=== PATIENT | female | born 1960 | race Caucasian/White ===

== ENCOUNTER 2018-08-05 06:07 | Day surgery (SDC) | payer MEDICAID ==
[~2018-08-05 06:07] MED LIST: Dextrose 5%-0.45% NaCl 1,000 ML IV SCH; Sodium Chloride 0.9% 10 ML Syringe FLUSH PRN
[2018-08-05] MEDS ORDERED: fentaNYL 100 MCG/2 ML SDV IV ONE ×3 (06:08→07:18)
[2018-08-05] MEDS ORDERED: Midazolam 1 MG/ML 2 ML SDV IV ONE ×3 (06:08→07:19)
[2018-08-05] MEDS ORDERED: Midazolam 1 MG/ML 2 ML SDV ONE (06:16)
[2018-08-05] MEDS ORDERED: fentaNYL 100 MCG/2 ML SDV ONE (06:17)
[2018-08-05 11:45] VITALS: BP 122/65
[2018-08-05 12:04] VITALS: PULSE 78
--- NOTE | 2018-08-05 14:56 | OR ---
DATE: 08/05/2018 PROCEDURE PERFORMED: Esophagogastroduodenoscopy and multiple pinch biopsies. INSTRUMENT USED: [id number]-[id number] Olympus video panendoscope. PREMEDICATIONS: No oral or topical anesthesia used. Fentanyl 100 mcg intravenous, Versed 2 mg intravenous. Nasal O2 cannula. The procedure was done under pulse oximetry, BP recording, and youth nutritional monitor. INDICATION: The patient with persistent longstanding heartburn and dyspepsia, unexplained and not responsive to medical measures, acid suppressant. Esophagogastroduodenoscopy is performed for detection of any active erosive lesions, Stark esophagus and/or malignancy also under consideration, H. pylori status to be determined, endoscopic hemostasis therapy if needed. DESCRIPTION OF PROCEDURE: The scope was passed with ease. Adequate visualization of the esophagus was made from proximal to distal areas. No upper esophageal lesions identified. No distal esophageal stricture. No uphill or downhill esophageal varices. No Rosie-Reyes tear. No evidence of erosive esophagitis by [place] criteria. No esophageal polyp or tumor mass identified. Sliding hiatal hernia was noted. Four-quadrant biopsies were taken from the pink columnar epithelium at 35 cm distal to the oral verge and sent for any histopathologic evidence of intestinal metaplasia. No proximal gastric varices noted. Gastric fundus examination by retroflexion showed no polypoid lesions. No gastric ulcer, malignant mass, or vascular ectasia identified. Multiple pinch biopsies were taken from the gastric antrum and proximal body and sent for PyloriTek test for H. pylori histopathology. Duodenal bulb showed no ulcer. Visualized second part of the duodenum was unremarkable. No bleeding was noted from any of the visualized areas at the completion of the examination. Photographs were taken of the duodenal bulb, gastric antrum, fundus, and distal esophagus. IMPRESSION: Sliding hiatal hernia. The patient tolerated the procedure well. [facility] /[id number]
== END 2018-08-05 09:32 | disposition home or self-care (01) ==
LOC: DL.ENDO 06:07
PROVIDERS: ATTEND Internal Medicine Gastroenterology
DX: K44.9 Diaphragmatic hernia without obstruction or gangrene (principal); I78.1 Nevus, non-neoplastic; I51.89 Other ill-defined heart diseases; K31.89 Other diseases of stomach and duodenum; K21.9 Gastro-esophageal reflux disease without esophagitis; I25.10 Atherosclerotic heart disease of native coronary artery without angina pectoris; Z95.5 Presence of coronary angioplasty implant and graft; E66.9 Obesity, unspecified; Z68.39 Body mass index [BMI] 39.0-39.9, adult; Z87.891 Personal history of nicotine dependence
CPT/HCPCS: 43239; 87077; J2250; J3010; J7042

== ENCOUNTER 2020-06-22 06:01 | Day surgery (SDC) | payer MEDICAID ==
[~2020-06-22 06:01] MED LIST changes: +Midazolam 1 MG/ML 2 ML SDV ONE; +fentaNYL 100 MCG/2 ML SDV ONE
[2020-06-22] MEDS ORDERED: Midazolam 1 MG/ML 2 ML SDV IV ONE ×7 (06:02→07:58)
[2020-06-22] MEDS ORDERED: fentaNYL 100 MCG/2 ML SDV IV ONE ×6 (06:02→08:14)
[2020-06-22 11:56] VITALS: BP 124/60; PULSE 71
--- NOTE | 2020-06-22 12:48 | OR ---
DATE: 06/22/2020 PROCEDURE: Total colonoscopy, NBI, and cold snare polypectomy. INSTRUMENT USED: [id number] Olympus video colonoscope. PREMEDICATIONS: Fentanyl 175 mcg intravenous, Versed 4 mg intravenous. Nasal O2 cannula. The procedure was done under pulse oximetry, BP recording, and monitor car operator. INDICATION: The patient with chronic constipation, unexplained and not responsive to medical measures, on long-term laxatives. Colonoscopic examination is done for detection of any polypoid lesions and removal, endoscopic hemostasis therapy if needed. DESCRIPTION OF PROCEDURE: Initial rectal exam was unremarkable. Rigid anoscopy showed diffuse pigmentation in the rectum, consistent with melanosis coli. The scope was passed with relative ease up to the cecum, photographs were taken of the normal-appearing cecum identified by landmarks of appendiceal orifice and double-bulged ileocecal folds. No bleeding was noted from any of the visualized areas at the commencement of the examination. Bowel preparation was found to be adequate, [place] scale 2 in all the regions, total number 6. Diffuse pigmentation in the colon noted, consistent with melanosis coli. No stricture. No vascular ectasia. No large isolated ulcerations seen. No evidence of diffuse inflammatory bowel disease in the form of friability, contact bleeding, or ulcerations. In the proximal ascending colon, 5 mm sized benign-appearing polyp was noted, NBI views were obtained, photographs were obtained, cold snare polypectomy was done, the tissue was retrieved and sent for histopathology. Probing the proximal sides of folds and flexures using adequate distention and clearing up the stool material, withdrawal of the scope was made, cecum to rectum time over 6 minutes. No bleeding was noted from any of the visualized areas at the completion of examination. IMPRESSION: 1. Melanosis coli. 2. Ascending colon polyp. The patient tolerated the procedure well. [facility] /[id number]
== END 2020-06-22 10:33 | disposition home or self-care (01) ==
LOC: DL.ENDO 06:01
PROVIDERS: ATTEND Internal Medicine Gastroenterology
DX: Z12.11 Encounter for screening for malignant neoplasm of colon (principal); D12.2 Benign neoplasm of ascending colon; K63.89 Other specified diseases of intestine; K59.09 Other constipation
CPT/HCPCS: 45385; J2250; J3010; J7042

== ENCOUNTER 2020-07-06 18:04 | Emergency (ER) | payer MEDICAID ==
[2020-07-06] MEDS ORDERED: Acetaminophen/HYDROcodone 325-5 MG Tab PO ONE (18:05)
[2020-07-06 18:30] VITALS: BP 103/87; PULSE 81
--- NOTE | 2020-07-06 18:56 | CR ---
PROCEDURE INFORMATION: Exam: XR Right Wrist Exam date and time: 07/06/2020 6:39 PM Age: 59 years old Clinical indication: Other: Fall; Additional info: Fall wrist pain TECHNIQUE: Imaging protocol: XR Right wrist. Views: 3 or more views. COMPARISON: No relevant prior studies available. FINDINGS: Bones/joints: There is a subtle cortical discontinuity at the distal radial metaphysis, best seen on the oblique view (image 2 series 1), concerning for a minimally displaced cortical fracture. Additionally, there are several very subtle linear lucencies appreciated throughout the distal radial metaphysis which are also concerning for a minimally displaced transverse fracture. No other acutely displaced fractures are identified. There is no evidence of dislocation. No aggressive osseous lesions. Soft tissues: There is soft tissue swelling. Other findings: Normal anatomic alignment. IMPRESSION: Findings are highly concerning for a minimally displaced and minimally comminuted/transverse fracture of the distal radial metaphysis.
--- NOTE | 2020-07-06 18:59 | EDM.PDOC ---
<Silvina Urbina Fareed - Last Filed: 07/06/20 18:43> ED HPI GENERAL MEDICAL PROBLEM - General Chief Complaint: Upper Extremity Injury/Pain Stated Complaint: RIGHT ARM INJURY, FELL DOWN Time Seen by Provider: 07/06/20 18:20 Source of Information: Reports: Patient, RN History Limitations: Reports: No Limitations - History of Present Illness INITIAL COMMENTS - FREE TEXT/NARRATIVE: ED with c/o pain to right wrist, Fell onto right wrist going up curb. No other injury. Swelling to wrist, some radiation to mid forearm with external movement Onset: Today - Related Data Allergies Allergy/AdvReac Type Severity Reaction Status Date / Time No Known Allergies Allergy Verified 06/22/20 06:09 Home Meds: Home Meds Aspirin [Halfprin] 81 mg PO DAILY 08/03/15 [History] Clopidogrel [Plavix] 75 mg PO DAILY 08/03/15 [History] Venlafaxine HCl [Venlafaxine ER] 75 mg PO DAILY 08/03/15 [History] carvediloL [Carvedilol] 3.125 mg PO BID 08/03/15 [History] Multivitamin [Multivitamins] 1 tab PO DAILY 08/04/18 [History] Nitroglycerin [Nitrostat] 0.4 mg PO ASDIRECTED 08/04/18 [History] Rosuvastatin [Crestor] 10 mg PO DAILY 08/04/18 [History] Ubidecarenone [Coenzyme Q10] 10 mg PO DAILY 08/04/18 [History] Vit A/C/E AC/Znox/Cupric Oxide [Eye Vitamin-Minerals Tablet] 1 tab PO DAILY 08/04/18 [History] Ezetimibe [Zetia] 10 mg PO DAILY 07/06/20 [History] Omeprazole 20 mg PO ACBREAKFAST 07/06/20 [History] Past Medical History HEENT History: Reports: None Cardiovascular History: Reports: CAD, High Cholesterol, Hypertension, PA, Stents Respiratory History: Reports: None Gastrointestinal History: Reports: Chronic Constipation, GERD Genitourinary History: Reports: None INFANT CHILDCARE PROVIDER History: Reports: , Spontaneous Musculoskeletal History: Reports: Arthritis, Back Pain, Chronic, Neck Pain, Chronic Other Musculoskeletal History: neck problems Neurological History: Reports: None Psychiatric History: Reports: Anxiety, Depression Endocrine/Metabolic History: Reports: None Hematologic History: Reports: None Immunologic History: Reports: None Oncologic (Cancer) History: Reports: None Dermatologic History: Reports: Psoriasis - Infectious Disease History Infectious Disease History: Reports: Chicken Pox - Past Surgical History Head Surgeries/Procedures: Reports: None HEENT Surgical History: Reports: None Cardiovascular Surgical History: Reports: Coronary Artery Stent Respiratory Surgical History: Reports: None GI Surgical History: Reports: Cholecystectomy, Colonoscopy, EGD Female Surgical History: Reports: None Endocrine Surgical History: Reports: None Neurological Surgical History: Reports: None Musculoskeletal Surgical History: Reports: None Oncologic Surgical History: Reports: None Dermatological Surgical History: Reports: None Social & Family History - Family History Family Medical History: No Pertinent Family History - Tobacco Use Tobacco Use Status *Q: Never Tobacco User Second Hand Smoke Exposure: No - Caffeine Use Caffeine Use: Reports: None Other Caffeine Use: COFFEE DAILY AVERAGE OF 3 CUPS DAILY Review of Systems - Review of Systems Review Of Systems: See Below ED EXAM, GENERAL - Physical Exam Exam: See Below Exam Limited By: No Limitations General Appearance: Alert, Mild Distress Eye Exam: Bilateral Eye: EOMI Ears: Normal External Exam Nose: Normal Inspection Throat/Mouth: Normal Inspection Head: Atraumatic, Normocephalic Respiratory/Chest: No Respiratory Distress, Normal Breath Sounds Cardiovascular: Regular Rate, Rhythm Extremities: Joint Swelling (right wrist), Limited Range of Motion, Other (rings form right 4th finger removed, returned to patient) Departure - Departure Disposition: Home, Self-Care 01 Condition: Good Clinical Impression: Fracture of radius Qualifiers: Encounter type: initial encounter Radius location: distal Fracture type: closed Fracture morphology: unspecified fracture morphology Laterality: right Qualified Code(s): S52.501A - Unspecified fracture of the lower end of right radius, initial encounter for closed fracture - Discharge Information *PRESCRIPTION DRUG MONITORING PROGRAM REVIEWED*: No *COPY OF PRESCRIPTION DRUG MONITORING REPORT IN PATIENT TINA: No Instructions: Wrist Fracture Treated With Immobilization, [id number] Forms: ED Department Discharge Additional Instructions: splint elevate ice to wrist tylenol 500mg every 4 hours may alternate with ibuprofen 400mg every 4 hours for mild to moderate pain norco 5/325 one every 6 hours as needed for severe pain clinic follow up early next week for re xray of right wrist Sepsis Event Note (ED) - Evaluation Sepsis Screening Result: No Definite Risk <Gt Georges - Last Filed: 07/06/20 19:17> ED TRAUMA EXTREMITY PROCEDURES - Splinting Right Upper Extremity Splint Site: Right wrist Pre-Procedure NV Status: Normal Post-Procedure NV Status: Normal Splint Material: Fiberglass Splint Design: Gutter Applied & Form Fitted By: Provider Provider Post-Splint Application NV Check: NV Status Normal Complications: No Course - Vital Signs Last Recorded V/S: Last Vital Signs Temp 36.4 C 07/06/20 18:23 Pulse 81 07/06/20 18:23 Resp 18 07/06/20 18:23 BP 103/87 07/06/20 18:23 Pulse Ox 98 07/06/20 18:23 - Orders/Labs/Meds Orders: Active Orders 24 hr Category Date Time Status DME for Discharge [COMM] Urgent Oth 07/06/20 19:15 Ordered Meds: Medications Discontinued Medications Generic Name Dose Route Start Last Admin Trade Name Tusharq PRN Reason Stop Dose Admin Hydrocodone Bitart/Acetaminophen Confirm 07/06/20 19:07 Acetaminophen/Hydrocodone 325-5 Mg Tab Administered 07/06/20 19:08 Dose 3 tab .ROUTE .STK-MED ONE Departure - Departure Time of Disposition: 19:17 Sepsis Event Note (ED) - Focused Exam Vital Signs: Vital Signs Temp Pulse Resp BP Pulse Ox 07/06/20 18:23 36.4 C 81 18 103/87 98 - My Orders Last 24 Hours: My Active Orders 07/06/20 19:15 DME for Discharge [COMM] Urgent - Assessment/Plan Last 24 Hours: My Active Orders 07/06/20 19:15 DME for Discharge [COMM] Urgent
[2020-07-06] MEDS ORDERED: Acetaminophen/HYDROcodone 325-5 MG Tab ONE (19:07)
== END 2020-07-06 19:36 | disposition home or self-care (01) ==
LOC: DL.ED 18:04
DX: S52.501A Unspecified fracture of the lower end of right radius, initial encounter for closed fracture (principal); I25.10 Atherosclerotic heart disease of native coronary artery without angina pectoris; E78.00 Pure hypercholesterolemia, unspecified; I10 Essential (primary) hypertension; I25.2 Old myocardial infarction; K21.9 Gastro-esophageal reflux disease without esophagitis; M19.90 Unspecified osteoarthritis, unspecified site; Z79.82 Long term (current) use of aspirin; Z79.02 Long term (current) use of antithrombotics/antiplatelets; Z95.5 Presence of coronary angioplasty implant and graft; Z79.899 Other long term (current) drug therapy; W10.1XXA Fall (on)(from) sidewalk curb, initial encounter
CPT/HCPCS: 29125; 73110; 99283; A9270

== ENCOUNTER 2021-01-29 20:57 | Inpatient (IN) | payer MEDICAID ==
[2021-01-29] MEDS ORDERED: Sodium Chloride 0.9% 1,000 ML IV ONE (22:09)
[2021-01-29] MEDS ORDERED: Levofloxacin/Dextrose 5%-Water 500 MG in Premix Bag 1 BAG IV ONE (22:25)
--- NOTE | 2021-01-29 22:25 | CR ---
PROCEDURE INFORMATION: Exam: XR Chest Exam date and time: 01/29/2021 10:05 PM Age: 60 years old Clinical indication: Cough and fever and other: Hypoxia; Additional info: Cough fever hypoxia TECHNIQUE: Imaging protocol: XR of the chest. Views: 1 view. COMPARISON: CR CHEST PORTABLE 01/15/2012 11:04 PM FINDINGS: Lungs: Patchy bilateral airspace disease. Pleural spaces: Unremarkable. No pleural effusion. No pneumothorax. Heart/Mediastinum: Unremarkable. No cardiomegaly. Bones/joints: Unremarkable. IMPRESSION: Patchy bilateral airspace opacities compatible with pneumonia
[2021-01-29 22:26] LABS: ANION GAP 13.9 mEq/L (7-13); CHLORIDE,CL 99 mmol/L (98-107); SODIUM,NA 137 mmol/L (136-145)
[2021-01-29] MEDS ORDERED: Dexamethasone 4 MG/ML SDV IVPUSH ONE (22:31)
--- NOTE | 2021-01-29 22:39 | EDM.PDOC ---
"<Kemal Hansen - Last Filed: 01/30/21 11:54> ED HPI GENERAL MEDICAL PROBLEM - General Chief Complaint: Respiratory Problem Stated Complaint: PNUMONIA, BLOOD OXYGEN LOW, COUGH Time Seen by Provider: 01/29/21 21:30 Source of Information: Reports: Patient, Provider (Carol TURK), RN, RN Notes Reviewed History Limitations: Reports: No Limitations - History of Present Illness INITIAL COMMENTS - FREE TEXT/NARRATIVE: I assumed care of the pt from Carol TURK at 0700HR shift change with pt held in ER for the past 9+HRS due to no beds available here, or anywhere else in the state. Pt has been confirmed COVID positive with B/L pneumonia and hypoxia. Pt reportedly placed on a list to be transferred to [facility] but they were holding pt's in their ER and have 7 pt's on the waiting list for transfer ahead of the pt. Pt currently with oxygen saturation of 94% on 3L/min at rest, and drops to 88% with conversation. Duration: Constant, Getting Worse Severity: Severe Improves with: Reports: Rest Worsens with: Reports: Movement Associated Symptoms: Reports: No Other Symptoms - Related Data Allergies Allergy/AdvReac Type Severity Reaction Status Date / Time No Known Allergies Allergy Verified 01/30/21 14:07 Home Meds: Home Meds Aspirin [Halfprin] 81 mg PO DAILY 08/03/15 [History] Clopidogrel [Plavix] 75 mg PO DAILY 08/03/15 [History] Venlafaxine HCl [Venlafaxine ER] 75 mg PO DAILY 08/03/15 [History] carvediloL [Carvedilol] 3.125 mg PO BID 08/03/15 [History] Nitroglycerin [Nitrostat] 0.4 mg PO ASDIRECTED 08/04/18 [History] Rosuvastatin [Crestor] 10 mg PO DAILY 08/04/18 [History] Ubidecarenone [Coenzyme Q10] 10 mg PO DAILY 08/04/18 [History] Vit A/C/E AC/Znox/Cupric Oxide [Eye Vitamin-Minerals Tablet] 1 tab PO DAILY 08/04/18 [History] Omeprazole 20 mg PO ACBREAKFAST 07/06/20 [History] Cholecalciferol (Vitamin D3) [Vitamin D3] 25 mcg PO DAILY tablet 02/01/21 [Rx] Docusate Sodium [Colace] 100 mg PO BID PRN cap 02/01/21 [Rx] Enoxaparin [Lovenox] 80 mg SUBCUT Q12HR syringe 02/01/21 [Rx] LORazepam [Ativan] 1 mg IVPUSH Q4H PRN vial 02/01/21 [Rx] Midazolam [Versed 5 MG/ML] 50 mg IV ASDIRECTED vial 02/01/21 [Rx] Morphine 1 mg IVPUSH Q1H PRN syringe 02/01/21 [Rx] Multivitamins/Minerals [Vitamins and Minerals] 1 tab PO WITHBREAKFAST tablet 02/01/21 [Rx] Ondansetron [Zofran ODT] 4 mg PO Q6H PRN tab.dis 02/01/21 [Rx] Remdesivir 100 mg IV Q24H vial 02/01/21 [Rx] Temazepam [Restoril] 15 mg PO BEDTIME PRN cap 02/01/21 [Rx] dexAMETHasone [Decadron] 6 mg IVPUSH DAILY sdv 02/01/21 [Rx] fentaNYL Citrate/PF [Fentanyl 1,500 MCG/30 ML - Water HAT CHECKER] 0 mcg IV ASDIRECTED vial 02/01/21 [Rx] guaiFENesin [Robitussin] 100 mg PO Q6H PRN cup 02/01/21 [Rx] Course - Radiology Interpretation Free Text/Narrative:: [facility] Final Radiology Report Call: [phone] assistance Online chat: [email or web address] Name: LIONEL MANZANO Age: 60Years F Date: 01/30/2021 SSN: -- : 1960 Study: CT CHEST WO CONT Requesting Physician: CAROL SPENCER Images: [id number] Addl Studies: Provided Clinical History: covid Contrast: Without Contrast Medium: Contrast Amount: Contrast Method: Page 1 of 2 PROCEDURE INFORMATION: Exam: CT Chest Without Contrast; Diagnostic Exam date and time: 01/30/2021 6:36 AM Age: 60 years old Clinical indication: Cough and shortness of breath; Additional info: Covid TECHNIQUE: Imaging protocol: Diagnostic computed tomography of the chest without contrast. Radiation optimization: All CT scans at this facility use at least one of these dose optimization techniques: automated exposure control; mA and/or kV adjustment per patient size (includes targeted exams where dose is matched to clinical indication); or iterative reconstruction. COMPARISON: CR Chest 1V Frontal 01/29/2021 10:05 PM FINDINGS: Lungs: Extensive patchy areas of ground-glass opacity and airspace consolidation throughout both lungs. Comparison across modalities is inexact, but findings are unchanged since the previous study. Pleural spaces: Unremarkable. No pneumothorax. No pleural effusion. Heart: Unremarkable. No cardiomegaly. No pericardial effusion. Aorta: Unremarkable. No aortic aneurysm. Lymph nodes: Unremarkable. No enlarged lymph nodes. Bones/joints: Mild scoliotic curvature. Mild to moderate degenerative change in the spine. Old wedge compression fracture of T9. No acute fractures. Soft tissues: Unremarkable. IMPRESSION: Bilateral pneumonia with features commonly associated with COVID-19. Other viral pneumonias may have the same appearance. Other less likely differential considerations include organizing pneumonia LIONEL MANZANO | Final Radiology Report CONFIDENTIALITY STATEMENT This report is intended only for use by the referring physician, and only in accordance with law. If you received this in error, call [phone]. Page 2 of 2 secondary to chronic interstitial lung disease, the chronic pneumonia associated with connective tissue disorders, and one of the pneumoconioses. Thank you for allowing us to participate in the care of your patient. Dictated and Authenticated by: Gigi Graves MD 01/30/2021 7:33 AM Central Time ([place] & [place]) Departure - Departure Time of Disposition: 11:54 (admit to Dr. Messer) Disposition: Admitted As Inpatient 65 Clinical Impression: Pneumonia due to COVID-19 virus, Hypoxia - Discharge Information <Carol Spencer - Last Filed: 02/06/21 02:51> ED HPI GENERAL MEDICAL PROBLEM - General Source of Information: Reports: Patient History Limitations: Reports: No Limitations - History of Present Illness INITIAL COMMENTS - FREE TEXT/NARRATIVE: ED with c/o SOB fever cough, Onset sx 8 days prior. has had nausea and diarrhea. Sx worse past 2 days. Achey at times. Fever up to 102 tonight. Poor appetite. Non smoker. No prior lung disease. NOt vaccinated. No known exposure. Room air triage 83% ixygenation. 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 Musculoskeletal History: Reports: Arthritis, Back Pain, Chronic, Neck Pain, Chronic Other Musculoskeletal History: neck problems Neurological History: Reports: None Psychiatric History: Reports: Anxiety, Depression Endocrine/Metabolic History: Reports: None Hematologic History: Reports: None Immunologic History: Reports: None Oncologic (Cancer) History: Reports: None Dermatologic History: Reports: Psoriasis - Infectious Disease History Infectious Disease History: Reports: Chicken Pox - Past Surgical History Head Surgeries/Procedures: Reports: None HEENT Surgical History: Reports: None Cardiovascular Surgical History: Reports: Coronary Artery Stent Respiratory Surgical History: Reports: None GI Surgical History: Reports: Cholecystectomy, Colonoscopy, EGD Female Surgical History: Reports: None Endocrine Surgical History: Reports: None Neurological Surgical History: Reports: None Musculoskeletal Surgical History: Reports: None Oncologic Surgical History: Reports: None Dermatological Surgical History: Reports: None Social & Family History - Family History Family Medical History: No Pertinent Family History - Tobacco Use Tobacco Use Status *Q: Never Tobacco User - Caffeine Use Caffeine Use: Reports: Coffee Other Caffeine Use: COFFEE DAILY AVERAGE OF 3 CUPS DAILY - Recreational Drug Use Recreational Drug Use: No ED ROS GENERAL - Review of Systems Review Of Systems: See Below Constitutional: Reports: Fever, Chills, Malaise, Weakness, Fatigue, Decreased Appetite HEENT: Reports: No Symptoms Respiratory: Reports: Shortness of Breath, Cough, Sputum Cardiovascular: Reports: No Symptoms GI/Abdominal: Reports: Diarrhea, Decreased Appetite, Nausea : Reports: No Symptoms Skin: Reports: No Symptoms Neurological: Reports: No Symptoms Psychiatric: Reports: No Symptoms ED EXAM, GENERAL - Physical Exam Exam: See Below Exam Limited By: No Limitations General Appearance: Alert, Mild Distress Eye Exam: Bilateral Eye: EOMI Ears: Normal External Exam Nose: Normal Inspection Throat/Mouth: Normal Inspection Head: Atraumatic, Normocephalic Neck: Normal Inspection, Full Range of Motion Respiratory/Chest: Decreased Breath Sounds, Crackles Cardiovascular: Normal Peripheral Pulses, Regular Rate, Rhythm GI/Abdominal: Normal Bowel Sounds, Soft Extremities: Normal Inspection Neurological: Alert, Oriented, Normal Cognition Psychiatric: Normal Affect, Normal Mood Skin Exam: Warm, Dry, Intact, Pallor #1 Interpretation EKG Date: 01/29/21 Time: 21:28 Rhythm: NSR Rate (Beats/Min): 72 Liberal: LAD-Left Liberal Deviation (borderline) P-Wave: Present QRS: Normal ST-T: Normal Comparison: NA - No Prior EKG Course - Vital Signs Last Recorded V/S: Last Vital Signs Temp 97.8 F 02/01/21 16:49 Pulse 110 H 02/01/21 16:49 Resp 24 H 02/01/21 16:49 BP 110/60 02/01/21 16:49 Pulse Ox 93 L 02/01/21 16:49 - Orders/Labs/Meds Labs: Laboratory Tests 01/29/21 01/29/21 01/29/21 Range/Units 21:19 21:50 21:50 WBC 8.3 (5.0-10.0) 10^3/uL RBC 4.18 L (4.2-5.4) 10^6/uL Hgb 12.6 (12.0-16.0) g/dL Hct 38.2 (37.0-47.0) % MCV 91.4 (80-100) fL MCH 30.1 (27.0-34.0) pg MCHC 33.0 (33.0-35.0) g/dL Plt Count 307 (150-450) 10^3/uL Neut % (Auto) 88.4 H (42.2-75.2) % Lymph % (Auto) 7.8 L (20.5-50.1) % [place] % (Auto) 3.7 (2-8) % Eos % (Auto) 0.0 L (1.0-3.0) % Baso % (Auto) 0.1 (0.0-1.0) % Add Manual Diff Neutrophils % (Manual) (42-75) % Lymphocytes % (Manual) (20-50) % Monocytes % (Manual) (2-8) % PT 10.0 (9.0-12.0) SEC INR 1.0 (0.9-1.2) D-Dimer, Quantitative 1680 H (0-400) ng/mL Sodium 137 (136-145) mmol/L Potassium 3.9 (3.5-5.1) mmol/L Chloride 99 (98-107) mmol/L Carbon Dioxide 28 (21-32) mmol/L Anion Gap 13.9 H (7-13) mEq/L BUN 14 (7-18) mg/dL Creatinine 0.77 (0.55-1.02) mg/dL Est Cr Clr Drug Dosing 60.68 mL/min Estimated GFR (MDRD) > 60 BUN/Creatinine Ratio 18.2 (No establ ref range) Glucose 120 H (70-99) mg/dL Lactic Acid (0.4-2.0) mmol/L Calcium 8.4 L (8.5-10.1) mg/dL Magnesium (1.8-2.4) mg/dL Total Bilirubin 0.6 (0.2-1.0) mg/dL Direct Bilirubin (0.0-0.2) mg/dL AST 46 H (15-37) U/L ALT 27 (14-59) U/L Alkaline Phosphatase 102 (46-116) U/L Troponin I High Sens (<=51) pg/mL C-Reactive Protein 69.7 H (0.0-0.9) mg/dL B-Natriuretic Peptide 78 (0-100) pg/ml Total Protein 7.5 (6.4-8.2) g/dL Albumin 2.8 L (3.4-5.0) g/dL Globulin 4.7 Albumin/Globulin Ratio 0.60 Procalcitonin ng/mL Urine Color (YELLOW) Urine Appearance (CLEAR) Urine pH (5.0-9.0) Ur Specific [place] (1.005-1.030) Urine Protein (NEGATIVE) Urine Glucose (UA) (NEGATIVE) Urine Ketones (NEGATIVE) Urine Occult Blood (NEGATIVE) Urine Nitrite (NEGATIVE) Urine Bilirubin (NEGATIVE) Urine Urobilinogen (0.2-1.0) mg/dL Ur Leukocyte Esterase (NEGATIVE) Influenza Type A RNA (NEGATIVE) Influenza Type B RNA (NEGATIVE) SARS-CoV-2 RNA (ALPA) (NEGATIVE) 01/29/21 01/29/21 01/29/21 Range/Units 21:50 21:50 21:50 WBC (5.0-10.0) 10^3/uL RBC (4.2-5.4) 10^6/uL Hgb (12.0-16.0) g/dL Hct (37.0-47.0) % MCV (80-100) fL MCH (27.0-34.0) pg MCHC (33.0-35.0) g/dL Plt Count (150-450) 10^3/uL Neut % (Auto) (42.2-75.2) % Lymph % (Auto) (20.5-50.1) % [place] % (Auto) (2-8) % Eos % (Auto) (1.0-3.0) % Baso % (Auto) (0.0-1.0) % Add Manual Diff Neutrophils % (Manual) (42-75) % Lymphocytes % (Manual) (20-50) % Monocytes % (Manual) (2-8) % PT (9.0-12.0) SEC INR (0.9-1.2) D-Dimer, Quantitative (0-400) ng/mL Sodium (136-145) mmol/L Potassium (3.5-5.1) mmol/L Chloride (98-107) mmol/L Carbon Dioxide (21-32) mmol/L Anion Gap (7-13) mEq/L BUN (7-18) mg/dL Creatinine (0.55-1.02) mg/dL Est Cr Clr Drug Dosing mL/min Estimated GFR (MDRD) BUN/Creatinine Ratio (No establ ref range) Glucose (70-99) mg/dL Lactic Acid 1.1 (0.4-2.0) mmol/L Calcium (8.5-10.1) mg/dL Magnesium 2.1 (1.8-2.4) mg/dL Total Bilirubin (0.2-1.0) mg/dL Direct Bilirubin (0.0-0.2) mg/dL AST (15-37) U/L ALT (14-59) U/L Alkaline Phosphatase (46-116) U/L Troponin I High Sens 6 (<=51) pg/mL C-Reactive Protein (0.0-0.9) mg/dL B-Natriuretic Peptide (0-100) pg/ml Total Protein (6.4-8.2) g/dL Albumin (3.4-5.0) g/dL Globulin Albumin/Globulin Ratio Procalcitonin ng/mL Urine Color (YELLOW) Urine Appearance (CLEAR) Urine pH (5.0-9.0) Ur Specific [place] (1.005-1.030) Urine Protein (NEGATIVE) Urine Glucose (UA) (NEGATIVE) Urine Ketones (NEGATIVE) Urine Occult Blood (NEGATIVE) Urine Nitrite (NEGATIVE) Urine Bilirubin (NEGATIVE) Urine Urobilinogen (0.2-1.0) mg/dL Ur Leukocyte Esterase (NEGATIVE) Influenza Type A RNA (NEGATIVE) Influenza Type B RNA (NEGATIVE) SARS-CoV-2 RNA (ALPA) (NEGATIVE) 01/29/21 01/30/21 01/30/21 Range/Units 21:57 03:05 06:21 WBC (5.0-10.0) 10^3/uL RBC (4.2-5.4) 10^6/uL Hgb (12.0-16.0) g/dL Hct (37.0-47.0) % MCV (80-100) fL MCH (27.0-34.0) pg MCHC (33.0-35.0) g/dL Plt Count (150-450) 10^3/uL Neut % (Auto) (42.2-75.2) % Lymph % (Auto) (20.5-50.1) % [place] % (Auto) (2-8) % Eos % (Auto) (1.0-3.0) % Baso % (Auto) (0.0-1.0) % Add Manual Diff Neutrophils % (Manual) (42-75) % Lymphocytes % (Manual) (20-50) % Monocytes % (Manual) (2-8) % PT (9.0-12.0) SEC INR (0.9-1.2) D-Dimer, Quantitative (0-400) ng/mL Sodium 140 (136-145) mmol/L Potassium 4.3 (3.5-5.1) mmol/L Chloride 103 (98-107) mmol/L Carbon Dioxide 28 (21-32) mmol/L Anion Gap 13.3 H (7-13) mEq/L BUN 10 (7-18) mg/dL Creatinine 0.82 (0.55-1.02) mg/dL Est Cr Clr Drug Dosing 56.98 mL/min Estimated GFR (MDRD) > 60 BUN/Creatinine Ratio 12.2 (No establ ref range) Glucose 148 H (70-99) mg/dL Lactic Acid (0.4-2.0) mmol/L Calcium 8.2 L (8.5-10.1) mg/dL Magnesium (1.8-2.4) mg/dL Total Bilirubin 0.4 (0.2-1.0) mg/dL Direct Bilirubin 0.2 (0.0-0.2) mg/dL AST 39 H (15-37) U/L ALT 24 (14-59) U/L Alkaline Phosphatase 93 (46-116) U/L Troponin I High Sens (<=51) pg/mL C-Reactive Protein 27.8 H (0.0-0.9) mg/dL B-Natriuretic Peptide (0-100) pg/ml Total Protein 6.9 (6.4-8.2) g/dL Albumin 2.3 L (3.4-5.0) g/dL Globulin 4.6 Albumin/Globulin Ratio 0.50 Procalcitonin ng/mL Urine Color Yellow (YELLOW) Urine Appearance Clear (CLEAR) Urine pH 6.5 (5.0-9.0) Ur Specific [place] 1.010 (1.005-1.030) Urine Protein Negative (NEGATIVE) Urine Glucose (UA) Negative (NEGATIVE) Urine Ketones Negative (NEGATIVE) Urine Occult Blood Negative (NEGATIVE) Urine Nitrite Negative (NEGATIVE) Urine Bilirubin Negative (NEGATIVE) Urine Urobilinogen 0.2 (0.2-1.0) mg/dL Ur Leukocyte Esterase Negative (NEGATIVE) Influenza Type A RNA Negative (NEGATIVE) Influenza Type B RNA Negative (NEGATIVE) SARS-CoV-2 RNA (ALPA) Positive H (NEGATIVE) 01/30/21 01/30/21 01/30/21 Range/Units 06:21 06:21 06:21 WBC 7.3 (5.0-10.0) 10^3/uL RBC 3.91 L (4.2-5.4) 10^6/uL Hgb 11.7 L (12.0-16.0) g/dL Hct 36.0 L (37.0-47.0) % MCV 92.1 (80-100) fL MCH 29.9 (27.0-34.0) pg MCHC 32.5 L (33.0-35.0) g/dL Plt Count 309 (150-450) 10^3/uL Neut % (Auto) 88.0 H (42.2-75.2) % Lymph % (Auto) 9.9 L (20.5-50.1) % [place] % (Auto) 1.9 L (2-8) % Eos % (Auto) 0.1 L (1.0-3.0) % Baso % (Auto) 0.1 (0.0-1.0) % Add Manual Diff Yes Neutrophils % (Manual) 92 H (42-75) % Lymphocytes % (Manual) 7 L (20-50) % Monocytes % (Manual) 1 L (2-8) % PT (9.0-12.0) SEC INR (0.9-1.2) D-Dimer, Quantitative 1610 H (0-400) ng/mL Sodium (136-145) mmol/L Potassium (3.5-5.1) mmol/L Chloride (98-107) mmol/L Carbon Dioxide (21-32) mmol/L Anion Gap (7-13) mEq/L BUN (7-18) mg/dL Creatinine (0.55-1.02) mg/dL Est Cr Clr Drug Dosing mL/min Estimated GFR (MDRD) BUN/Creatinine Ratio (No establ ref range) Glucose (70-99) mg/dL Lactic Acid (0.4-2.0) mmol/L Calcium (8.5-10.1) mg/dL Magnesium (1.8-2.4) mg/dL Total Bilirubin (0.2-1.0) mg/dL Direct Bilirubin (0.0-0.2) mg/dL AST (15-37) U/L ALT (14-59) U/L Alkaline Phosphatase (46-116) U/L Troponin I High Sens (<=51) pg/mL C-Reactive Protein (0.0-0.9) mg/dL B-Natriuretic Peptide (0-100) pg/ml Total Protein (6.4-8.2) g/dL Albumin (3.4-5.0) g/dL Globulin Albumin/Globulin Ratio Procalcitonin 18.53 H ng/mL Urine Color (YELLOW) Urine Appearance (CLEAR) Urine pH (5.0-9.0) Ur Specific [place] (1.005-1.030) Urine Protein (NEGATIVE) Urine Glucose (UA) (NEGATIVE) Urine Ketones (NEGATIVE) Urine Occult Blood (NEGATIVE) Urine Nitrite (NEGATIVE) Urine Bilirubin (NEGATIVE) Urine Urobilinogen (0.2-1.0) mg/dL Ur Leukocyte Esterase (NEGATIVE) Influenza Type A RNA (NEGATIVE) Influenza Type B RNA (NEGATIVE) SARS-CoV-2 RNA (ALPA) (NEGATIVE) Meds: Medications Discontinued Medications Generic Name Dose Route Start Last Admin Trade Name Freq PRN Reason Stop Dose Admin Acetaminophen 650 mg 01/29/21 23:27 01/30/21 00:07 Acetaminophen 325 Mg Tab PO 01/29/21 23:28 650 mg NOW ONE Administration Acetaminophen 500 mg 01/30/21 02:08 01/30/21 11:03 Acetaminophen 500 Mg Tab PO 500 mg ONETIME PRN Administration Fever Acetaminophen 650 mg 01/30/21 14:22 01/31/21 22:01 Acetaminophen 325 Mg Tab PO 650 mg Q6H PRN Administration Fever Acetaminophen 650 mg 02/01/21 12:30 02/01/21 13:37 Acetaminophen 650 Mg Supp RECTAL 02/01/21 12:31 650 mg ONETIME ONE Administration Albuterol 0 gm 01/30/21 17:00 02/01/21 11:05 Albuterol 6.7 Gm Inhaler INH Not Given QIDRT [facility] Carvedilol 3.125 mg 01/30/21 18:00 02/01/21 11:05 Carvedilol 3.125 Mg Tab PO Not Given BIDMEALS [facility] Cholecalciferol 25 mcg 01/31/21 09:00 02/01/21 11:05 Cholecalciferol (Vitamin D3) 25 Mcg Tab PO Not Given DAILY [facility] Clopidogrel Bisulfate 75 mg 01/30/21 07:00 01/30/21 08:14 Clopidogrel 75 Mg Tab PO 01/30/21 07:01 75 mg ONETIME ONE Administration Clopidogrel Bisulfate 75 mg 01/31/21 09:00 02/01/21 11:05 Clopidogrel 75 Mg Tab PO Not Given DAILY [facility]ENE Dexamethasone 6 mg 01/29/21 22:31 01/29/21 22:49 Dexamethasone 4 Mg/Ml Sdv IVPUSH 01/29/21 22:32 6 mg ONETIME ONE Administration Dexamethasone 6 mg 01/31/21 08:00 01/31/21 09:25 Dexamethasone 6 Mg Tablet PO 6 mg DAILY@0800 ADILENE Administration Dexamethasone 6 mg 02/01/21 09:00 02/01/21 11:05 Dexamethasone 4 Mg/Ml Sdv IVPUSH Not Given DAILY AD[facility]ENE Docusate Sodium 100 mg 01/30/21 14:25 Docusate Sodium 100 Mg Cap PO BID PRN Constipation Ezetimibe 10 mg 01/31/21 09:00 02/01/21 11:05 Ezetimibe 10 Mg Tab PO Not Given DAILY [facility] Enoxaparin Sodium 40 mg 01/30/21 02:24 01/30/21 03:15 Enoxaparin 40 Mg/0.4 Ml Syringe SUBCUT 01/30/21 02:25 40 mg ONETIME ONE Administration Enoxaparin Sodium 80 mg 01/30/21 21:00 02/01/21 10:39 Enoxaparin 80 Mg/0.8 Ml Syringe SUBCUT 80 mg Q12HR [facility]ILENE Administration Fentanyl 50 mcg 02/01/21 17:15 02/01/21 17:07 Fentanyl 100 Mcg/2 Ml Sdv IVPUSH 02/01/21 17:16 50 mcg ONETIME ONE Administration Fentanyl Confirm 02/01/21 17:04 Fentanyl 100 Mcg/2 Ml Sdv Administered 02/01/21 17:05 Dose 100 mcg .ROUTE .STK-MED ONE Fentanyl Citrate 0 mcg 02/01/21 12:00 02/01/21 12:13 Fentanyl Citrate/Pf 1,500 Mcg/30 Ml Visual Journalist Vial IV 1,500 mcg ASDIRECTED [facility] Administration Protocol Guaifenesin 100 mg 01/30/21 21:44 01/30/21 22:55 Guaifenesin 100 Mg/5 Ml Soln 5 Ml Ud Cup PO 100 mg Q6H PRN Administration Cough Sodium Chloride 1,000 mls @ 100 mls/hr 01/29/21 22:09 01/30/21 00:07 Normal Saline IV 01/30/21 08:08 100 mls/hr .BOLUS ONE Administration Levofloxacin/Dextrose 500 mg/ 100 mls @ 100 mls/hr 01/29/21 22:25 01/29/21 22:53 Premix IV 01/29/21 23:24 100 mls/hr ONETIME ONE Administration Remdesivir 200 mg/ Sodium 250 mls @ 250 mls/hr 01/30/21 02:25 01/30/21 03:14 Chloride IV 01/30/21 03:24 250 mls/hr ONETIME ONE Administration Remdesivir 200 mg/ Sodium 250 mls @ 250 mls/hr 01/31/21 09:00 Chloride IV 02/03/21 09:59 DAILY [facility]ENE Remdesivir 100 mg/ Sodium 100 mls @ 100 mls/hr 01/31/21 09:00 02/01/21 10:39 Chloride IV 02/03/21 09:59 100 mls/hr Q24H [facility] Administration Midazolam HCl 50 mg/ Sodium 50 mls @ 0.5 mls/hr 02/01/21 11:30 02/01/21 12:06 Chloride IV 1 mg/hr ASDIRECTED [facility] 1 mls/hr Titration Protocol 0.5 MG/HR Propofol 100 mls @ 2.368 mls/hr 02/01/21 11:45 Diprivan 100 Ml IV .TITRATE [facility] Protocol 5 MCG/KG/MIN Midazolam HCl 50 mg/ Sodium 50 mls @ 0.5 mls/hr 02/01/21 12:00 Chloride IV ASDIRECTED [facility] Protocol 0.5 MG/HR Ketamine HCl 500 mg/ Sodium 510 mls @ 80.504 mls/hr 02/01/21 16:15 02/01/21 16:47 Chloride IV 1 mg/kg/hr .ASDIRECTED ADILENE 80.504 mls/hr Administration 1 MG/KG/HR Iopamidol 100 ml 01/30/21 16:16 01/30/21 16:21 Iopamidol 755 Mg/Ml 100 Ml Bottle IVPUSH 01/30/21 16:17 66 ml ONETIME ONE Administration Lorazepam 1 mg 01/31/21 20:21 02/01/21 10:34 Lorazepam 2 Mg/Ml Sdv IVPUSH 1 mg Q4H PRN Administration Anxiety Morphine Sulfate 1 mg 02/01/21 03:45 02/01/21 04:01 Morphine 2 Mg/Ml Syringe IVPUSH 02/01/21 03:46 1 mg ONETIME ONE Administration Morphine Sulfate 1 mg 02/01/21 08:48 02/01/21 09:05 Morphine 2 Mg/Ml Syringe IVPUSH 1 mg Q1H PRN Administration Pain, sob Multivitamins/Minerals 1 tab 01/31/21 08:00 02/01/21 11:05 Multivitamins, Therapeutic With Minerals Tab PO Not Given WITHBREAKFAST [facility]ENE Naloxone HCl 0.04 mg 02/01/21 11:52 Naloxone 2 Mg/2 Ml Syringe IVPUSH Q3M PRN Respiratory Depression Omeprazole 20 mg 01/30/21 07:00 01/30/21 06:26 Omeprazole 20 Mg Cap.Cr PO 01/30/21 07:01 20 mg ONETIME ONE Administration Omeprazole 20 mg 01/31/21 06:00 02/01/21 05:54 Omeprazole 20 Mg Cap.Cr PO 20 mg ACBREAKFAST [facility]ENE Administration Ondansetron HCl 4 mg 01/30/21 02:08 01/30/21 03:29 Ondansetron 4 Mg/2 Ml Sdv IVPUSH 4 mg ONETIME PRN Administration Nausea Ondansetron HCl 4 mg 01/30/21 14:25 01/31/21 22:02 Ondansetron 4 Mg Tab.Dis PO 4 mg Q6H PRN Administration nausea, able to take PO Promethazine HCl/Codeine 10 ml 01/30/21 11:06 01/30/21 11:14 Codeine/Promethazine 10-6.25 Mg/5 Ml Syrup 5 Ml Ud Cup PO 01/30/21 11:07 10 ml ONETIME ONE Administration Rosuvastatin Calcium 10 mg 01/31/21 09:00 02/01/21 11:05 Rosuvastatin 10 Mg Tab PO Not Given DAILY [facility]ENE Sodium Chloride 10 ml 01/30/21 14:25 Sodium Chloride 0.9% 10 Ml Syringe FLUSH ASDIRECTED PRN Keep Vein Open Temazepam 15 mg 01/30/21 14:25 Temazepam 15 Mg Cap PO BEDTIME PRN Sleep Venlafaxine HCl 75 mg 01/30/21 07:00 01/30/21 08:14 Venlafaxine 37.5 Mg Cap.Er PO 01/30/21 07:01 75 mg WITHBREAKFAST ONE Administration Venlafaxine HCl 75 mg 01/31/21 09:00 02/01/21 11:05 Venlafaxine 37.5 Mg Cap.Er PO Not Given DAILY ADILENE Zolpidem Tartrate 5 mg 01/30/21 21:45 01/30/21 22:55 Zolpidem 5 Mg Tab PO 5 mg BEDTIME PRN Administration Sleep - Re-Assessments/Exams Free Text/Narrative Re-Assessment/Exam: 01/30/21 01:37TC [facility], [facility], no bed availability, No current bed available at [facility]. [facility] 2nd call. no beds in [place] at present. Patient informed. Condition stable on oxygen. Will continue to hold in ED. 01/30/21 05:42 Patient is on [facility] Vitals remain stable. Some nausea no vomiting. Ct pending this am. 01/30/21 06:[address] Hansen with shift change. Departure - Discharge Information *PRESCRIPTION DRUG MONITORING PROGRAM REVIEWED*: No *COPY OF PRESCRIPTION DRUG MONITORING REPORT IN PATIENT TINA: No"
[2021-01-29 22:44] LABS: CORONAVIRUS COVID-19 NAA POSITIVE (NEGATIVE)
[2021-01-29] MEDS ORDERED: Acetaminophen 325 MG Tab PO ONE (23:27)
[2021-01-30] MEDS ORDERED: Ondansetron 4 MG/2 ML SDV IVPUSH PRN (02:08)
[2021-01-30] MEDS ORDERED: Acetaminophen 500 MG Tab PO PRN (02:08)
[2021-01-30] MEDS ORDERED: Enoxaparin 40 MG/0.4 ML Syringe SUBCUT ONE (02:24)
[2021-01-30] MEDS ORDERED: REMDESIVIR 200 MG in Sodium Chloride 0.9% 250 ML IV ONE (02:25)
[2021-01-30] MEDS ORDERED: Omeprazole 20 MG Cap.CR PO ONE (07:00)
[2021-01-30] MEDS ORDERED: Venlafaxine 37.5 MG Cap.ER PO ONE (07:00)
[2021-01-30] MEDS ORDERED: Clopidogrel 75 MG Tab PO ONE (07:00)
[2021-01-30 07:33] LABS: ANION GAP 13.3 mEq/L (7-13); CHLORIDE,CL 103 mmol/L (98-107); SODIUM,NA 140 mmol/L (136-145)
--- NOTE | 2021-01-30 07:33 | CT ---
PROCEDURE INFORMATION: Exam: CT Chest Without Contrast; Diagnostic Exam date and time: 01/30/2021 6:36 AM Age: 60 years old Clinical indication: Cough and shortness of breath; Additional info: Covid TECHNIQUE: Imaging protocol: Diagnostic computed tomography of the chest without contrast. Radiation optimization: All CT scans at this facility use at least one of these dose optimization techniques: automated exposure control; mA and/or kV adjustment per patient size (includes targeted exams where dose is matched to clinical indication); or iterative reconstruction. COMPARISON: CR Chest 1V Frontal 01/29/2021 10:05 PM FINDINGS: Lungs: Extensive patchy areas of ground-glass opacity and airspace consolidation throughout both lungs. Comparison across modalities is inexact, but findings are unchanged since the previous study. Pleural spaces: Unremarkable. No pneumothorax. No pleural effusion. Heart: Unremarkable. No cardiomegaly. No pericardial effusion. Aorta: Unremarkable. No aortic aneurysm. Lymph nodes: Unremarkable. No enlarged lymph nodes. Bones/joints: Mild scoliotic curvature. Mild to moderate degenerative change in the spine. Old wedge compression fracture of T9. No acute fractures. Soft tissues: Unremarkable. IMPRESSION: Bilateral pneumonia with features commonly associated with COVID-19. Other viral pneumonias may have the same appearance. Other less likely differential considerations include organizing pneumonia secondary to chronic interstitial lung disease, the chronic pneumonia associated with connective tissue disorders, and one of the pneumoconioses.
[2021-01-30] MEDS ORDERED: Codeine/Promethazine 10-6.25 MG/5 ML Syrup 5 ML UD Cup PO ONE (11:06)
[2021-01-30] MEDS ORDERED: Docusate Sodium 100 MG Cap PO PRN (14:25)
[2021-01-30] MEDS ORDERED: Temazepam 15 MG Cap PO PRN (14:25)
[2021-01-30] MEDS ORDERED: Sodium Chloride 0.9% 10 ML Syringe FLUSH PRN (14:25)
--- NOTE | 2021-01-30 14:53 | PCM.HP ---
H&P History of Present Illness - General Date of Service: 01/30/21 Admit Problem/Dx: Admission Diagnosis/Problem Admission Diagnosis/Problem Hypoxia Source of Information: Patient - History of Present Illness Initial Comments - Free Text/Narative: presented with sob, fever, chills, achiness symptoms started about 8 days prior to admission, got worse over the past 2 days had nausea, diarrhea no abd pain Right Upper Headache Pain Score (Numeric/FACES): 1 - Related Data Allergies/Adverse Reactions: Allergies Allergy/AdvReac Type Severity Reaction Status Date / Time No Known Allergies Allergy Verified 01/30/21 14:07 Home Medications: Home Meds Aspirin [Halfprin] 81 mg PO DAILY 08/03/15 [History] Clopidogrel [Plavix] 75 mg PO DAILY 08/03/15 [History] Venlafaxine HCl [Venlafaxine ER] 75 mg PO DAILY 08/03/15 [History] carvediloL [Carvedilol] 3.125 mg PO BID 08/03/15 [History] Multivitamin [Multivitamins] 1 tab PO DAILY 08/04/18 [History] Nitroglycerin [Nitrostat] 0.4 mg PO ASDIRECTED 08/04/18 [History] Rosuvastatin [Crestor] 10 mg PO DAILY 08/04/18 [History] Ubidecarenone [Coenzyme Q10] 10 mg PO DAILY 08/04/18 [History] Vit A/C/E AC/Znox/Cupric Oxide [Eye Vitamin-Minerals Tablet] 1 tab PO DAILY 08/04/18 [History] Ezetimibe [Zetia] 10 mg PO DAILY 07/06/20 [History] Omeprazole 20 mg PO ACBREAKFAST 07/06/20 [History] Past Medical History HEENT History: Reports: Impaired Vision Other HEENT History: WEARS CORRECTIVE LENS. 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 Musculoskeletal History: Reports: Arthritis, Back Pain, Chronic, Neck Pain, Chronic Other Musculoskeletal History: neck problems Neurological History: Reports: None Psychiatric History: Reports: Anxiety, Depression Endocrine/Metabolic History: Reports: None Hematologic History: Reports: None Immunologic History: Reports: None Oncologic (Cancer) History: Reports: None Dermatologic History: Reports: Psoriasis - Infectious Disease History Infectious Disease History: Reports: Chicken Pox, Novel Coronavirus - Past Surgical History Head Surgeries/Procedures: Reports: None HEENT Surgical History: Reports: None Cardiovascular Surgical History: Reports: Coronary Artery Stent Respiratory Surgical History: Reports: None GI Surgical History: Reports: Cholecystectomy, Colonoscopy, EGD Female Surgical History: Reports: None Endocrine Surgical History: Reports: None Neurological Surgical History: Reports: None Musculoskeletal Surgical History: Reports: None Oncologic Surgical History: Reports: None Dermatological Surgical History: Reports: None Social & Family History - Family History Family Medical History: No Pertinent Family History - Tobacco Use Tobacco Use Status *Q: Never Tobacco User - Caffeine Use Caffeine Use: Reports: Coffee Other Caffeine Use: AVERAGE OF 4 CUPS DAILY - Recreational Drug Use Recreational Drug Use: No H&P Review of Systems - Review of Systems: Review Of Systems: See Below General: Reports: Fever, Chills, Malaise, Weakness, Decreased Appetite Pulmonary: Reports: Shortness of Breath, Cough. Denies: Hemoptysis Cardiovascular: Denies: Chest Pain, Edema Gastrointestinal: Reports: Diarrhea, Nausea. Denies: Abdominal Pain Psychiatric: Denies: Confusion Neurological: Denies: Confusion Exam - Exam Exam: See Below - Vital Signs Vital Signs: Last Vital Signs Temp 99.0 F 01/30/21 14:00 Pulse 72 01/30/21 14:00 Resp 28 H 01/30/21 14:00 BP 112/42 L 01/30/21 14:00 Pulse Ox 97 01/30/21 14:00 Weight: 174 lb - Exam Quality Assessment: Supplemental Oxygen General: Alert, Oriented Neck: Supple Lungs: Normal Respiratory Effort, Rhonchi Cardiovascular: Regular Rate, Regular Rhythm GI/Abdominal Exam: Normal Bowel Sounds, Soft, Non-Tender Extremities: No Pedal Edema - Patient Data Lab Results Last 24 hrs: Laboratory Results - last 24 hr 01/29/21 01/29/21 01/29/21 Range/Units 21:19 21:50 21:50 WBC 8.3 (5.0-10.0) 10^3/uL RBC 4.18 L (4.2-5.4) 10^6/uL Hgb 12.6 (12.0-16.0) g/dL Hct 38.2 (37.0-47.0) % MCV 91.4 (80-100) fL MCH 30.1 (27.0-34.0) pg MCHC 33.0 (33.0-35.0) g/dL Plt Count 307 (150-450) 10^3/uL Neut % (Auto) 88.4 H (42.2-75.2) % Lymph % (Auto) 7.8 L (20.5-50.1) % [place] % (Auto) 3.7 (2-8) % Eos % (Auto) 0.0 L (1.0-3.0) % Baso % (Auto) 0.1 (0.0-1.0) % Add Manual Diff Neutrophils % (Manual) (42-75) % Lymphocytes % (Manual) (20-50) % Monocytes % (Manual) (2-8) % PT 10.0 (9.0-12.0) SEC INR 1.0 (0.9-1.2) D-Dimer, Quantitative 1680 H (0-400) ng/mL Sodium 137 (136-145) mmol/L Potassium 3.9 (3.5-5.1) mmol/L Chloride 99 (98-107) mmol/L Carbon Dioxide 28 (21-32) mmol/L Anion Gap 13.9 H (7-13) mEq/L BUN 14 (7-18) mg/dL Creatinine 0.77 (0.55-1.02) mg/dL Est Cr Clr Drug Dosing 60.68 mL/min Estimated GFR (MDRD) > 60 BUN/Creatinine Ratio 18.2 (No establ ref range) Glucose 120 H (70-99) mg/dL Lactic Acid (0.4-2.0) mmol/L Calcium 8.4 L (8.5-10.1) mg/dL Magnesium (1.8-2.4) mg/dL Total Bilirubin 0.6 (0.2-1.0) mg/dL Direct Bilirubin (0.0-0.2) mg/dL AST 46 H (15-37) U/L ALT 27 (14-59) U/L Alkaline Phosphatase 102 (46-116) U/L Troponin I High Sens (<=51) pg/mL C-Reactive Protein 69.7 H (0.0-0.9) mg/dL B-Natriuretic Peptide 78 (0-100) pg/ml Total Protein 7.5 (6.4-8.2) g/dL Albumin 2.8 L (3.4-5.0) g/dL Globulin 4.7 Albumin/Globulin Ratio 0.60 Urine Color (YELLOW) Urine Appearance (CLEAR) Urine pH (5.0-9.0) Ur Specific [place] (1.005-1.030) Urine Protein (NEGATIVE) Urine Glucose (UA) (NEGATIVE) Urine Ketones (NEGATIVE) Urine Occult Blood (NEGATIVE) Urine Nitrite (NEGATIVE) Urine Bilirubin (NEGATIVE) Urine Urobilinogen (0.2-1.0) mg/dL Ur Leukocyte Esterase (NEGATIVE) Influenza Type A RNA (NEGATIVE) Influenza Type B RNA (NEGATIVE) SARS-CoV-2 RNA (ALPA) (NEGATIVE) 01/29/21 01/29/21 01/29/21 Range/Units 21:50 21:50 21:50 WBC (5.0-10.0) 10^3/uL RBC (4.2-5.4) 10^6/uL Hgb (12.0-16.0) g/dL Hct (37.0-47.0) % MCV (80-100) fL MCH (27.0-34.0) pg MCHC (33.0-35.0) g/dL Plt Count (150-450) 10^3/uL Neut % (Auto) (42.2-75.2) % Lymph % (Auto) (20.5-50.1) % [place] % (Auto) (2-8) % Eos % (Auto) (1.0-3.0) % Baso % (Auto) (0.0-1.0) % Add Manual Diff Neutrophils % (Manual) (42-75) % Lymphocytes % (Manual) (20-50) % Monocytes % (Manual) (2-8) % PT (9.0-12.0) SEC INR (0.9-1.2) D-Dimer, Quantitative (0-400) ng/mL Sodium (136-145) mmol/L Potassium (3.5-5.1) mmol/L Chloride (98-107) mmol/L Carbon Dioxide (21-32) mmol/L Anion Gap (7-13) mEq/L BUN (7-18) mg/dL Creatinine (0.55-1.02) mg/dL Est Cr Clr Drug Dosing mL/min Estimated GFR (MDRD) BUN/Creatinine Ratio (No establ ref range) Glucose (70-99) mg/dL Lactic Acid 1.1 (0.4-2.0) mmol/L Calcium (8.5-10.1) mg/dL Magnesium 2.1 (1.8-2.4) mg/dL Total Bilirubin (0.2-1.0) mg/dL Direct Bilirubin (0.0-0.2) mg/dL AST (15-37) U/L ALT (14-59) U/L Alkaline Phosphatase (46-116) U/L Troponin I High Sens 6 (<=51) pg/mL C-Reactive Protein (0.0-0.9) mg/dL B-Natriuretic Peptide (0-100) pg/ml Total Protein (6.4-8.2) g/dL Albumin (3.4-5.0) g/dL Globulin Albumin/Globulin Ratio Urine Color (YELLOW) Urine Appearance (CLEAR) Urine pH (5.0-9.0) Ur Specific [place] (1.005-1.030) Urine Protein (NEGATIVE) Urine Glucose (UA) (NEGATIVE) Urine Ketones (NEGATIVE) Urine Occult Blood (NEGATIVE) Urine Nitrite (NEGATIVE) Urine Bilirubin (NEGATIVE) Urine Urobilinogen (0.2-1.0) mg/dL Ur Leukocyte Esterase (NEGATIVE) Influenza Type A RNA (NEGATIVE) Influenza Type B RNA (NEGATIVE) SARS-CoV-2 RNA (ALPA) (NEGATIVE) 01/29/21 01/30/21 01/30/21 Range/Units 21:57 03:05 06:21 WBC (5.0-10.0) 10^3/uL RBC (4.2-5.4) 10^6/uL Hgb (12.0-16.0) g/dL Hct (37.0-47.0) % MCV (80-100) fL MCH (27.0-34.0) pg MCHC (33.0-35.0) g/dL Plt Count (150-450) 10^3/uL Neut % (Auto) (42.2-75.2) % Lymph % (Auto) (20.5-50.1) % [place] % (Auto) (2-8) % Eos % (Auto) (1.0-3.0) % Baso % (Auto) (0.0-1.0) % Add Manual Diff Neutrophils % (Manual) (42-75) % Lymphocytes % (Manual) (20-50) % Monocytes % (Manual) (2-8) % PT (9.0-12.0) SEC INR (0.9-1.2) D-Dimer, Quantitative (0-400) ng/mL Sodium 140 (136-145) mmol/L Potassium 4.3 (3.5-5.1) mmol/L Chloride 103 (98-107) mmol/L Carbon Dioxide 28 (21-32) mmol/L Anion Gap 13.3 H (7-13) mEq/L BUN 10 (7-18) mg/dL Creatinine 0.82 (0.55-1.02) mg/dL Est Cr Clr Drug Dosing 56.98 mL/min Estimated GFR (MDRD) > 60 BUN/Creatinine Ratio 12.2 (No establ ref range) Glucose 148 H (70-99) mg/dL Lactic Acid (0.4-2.0) mmol/L Calcium 8.2 L (8.5-10.1) mg/dL Magnesium (1.8-2.4) mg/dL Total Bilirubin 0.4 (0.2-1.0) mg/dL Direct Bilirubin 0.2 (0.0-0.2) mg/dL AST 39 H (15-37) U/L ALT 24 (14-59) U/L Alkaline Phosphatase 93 (46-116) U/L Troponin I High Sens (<=51) pg/mL C-Reactive Protein 27.8 H (0.0-0.9) mg/dL B-Natriuretic Peptide (0-100) pg/ml Total Protein 6.9 (6.4-8.2) g/dL Albumin 2.3 L (3.4-5.0) g/dL Globulin 4.6 Albumin/Globulin Ratio 0.50 Urine Color Yellow (YELLOW) Urine Appearance Clear (CLEAR) Urine pH 6.5 (5.0-9.0) Ur Specific [place] 1.010 (1.005-1.030) Urine Protein Negative (NEGATIVE) Urine Glucose (UA) Negative (NEGATIVE) Urine Ketones Negative (NEGATIVE) Urine Occult Blood Negative (NEGATIVE) Urine Nitrite Negative (NEGATIVE) Urine Bilirubin Negative (NEGATIVE) Urine Urobilinogen 0.2 (0.2-1.0) mg/dL Ur Leukocyte Esterase Negative (NEGATIVE) Influenza Type A RNA Negative (NEGATIVE) Influenza Type B RNA Negative (NEGATIVE) SARS-CoV-2 RNA (ALPA) Positive H (NEGATIVE) 01/30/21 01/30/21 Range/Units 06:21 06:21 WBC 7.3 (5.0-10.0) 10^3/uL RBC 3.91 L (4.2-5.4) 10^6/uL Hgb 11.7 L (12.0-16.0) g/dL Hct 36.0 L (37.0-47.0) % MCV 92.1 (80-100) fL MCH 29.9 (27.0-34.0) pg MCHC 32.5 L (33.0-35.0) g/dL Plt Count 309 (150-450) 10^3/uL Neut % (Auto) 88.0 H (42.2-75.2) % Lymph % (Auto) 9.9 L (20.5-50.1) % [place] % (Auto) 1.9 L (2-8) % Eos % (Auto) 0.1 L (1.0-3.0) % Baso % (Auto) 0.1 (0.0-1.0) % Add Manual Diff Yes Neutrophils % (Manual) 92 H (42-75) % Lymphocytes % (Manual) 7 L (20-50) % Monocytes % (Manual) 1 L (2-8) % PT (9.0-12.0) SEC INR (0.9-1.2) D-Dimer, Quantitative 1610 H (0-400) ng/mL Sodium (136-145) mmol/L Potassium (3.5-5.1) mmol/L Chloride (98-107) mmol/L Carbon Dioxide (21-32) mmol/L Anion Gap (7-13) mEq/L BUN (7-18) mg/dL Creatinine (0.55-1.02) mg/dL Est Cr Clr Drug Dosing mL/min Estimated GFR (MDRD) BUN/Creatinine Ratio (No establ ref range) Glucose (70-99) mg/dL Lactic Acid (0.4-2.0) mmol/L Calcium (8.5-10.1) mg/dL Magnesium (1.8-2.4) mg/dL Total Bilirubin (0.2-1.0) mg/dL Direct Bilirubin (0.0-0.2) mg/dL AST (15-37) U/L ALT (14-59) U/L Alkaline Phosphatase (46-116) U/L Troponin I High Sens (<=51) pg/mL C-Reactive Protein (0.0-0.9) mg/dL B-Natriuretic Peptide (0-100) pg/ml Total Protein (6.4-8.2) g/dL Albumin (3.4-5.0) g/dL Globulin Albumin/Globulin Ratio Urine Color (YELLOW) Urine Appearance (CLEAR) Urine pH (5.0-9.0) Ur Specific [place] (1.005-1.030) Urine Protein (NEGATIVE) Urine Glucose (UA) (NEGATIVE) Urine Ketones (NEGATIVE) Urine Occult Blood (NEGATIVE) Urine Nitrite (NEGATIVE) Urine Bilirubin (NEGATIVE) Urine Urobilinogen (0.2-1.0) mg/dL Ur Leukocyte Esterase (NEGATIVE) Influenza Type A RNA (NEGATIVE) Influenza Type B RNA (NEGATIVE) SARS-CoV-2 RNA (ALPA) (NEGATIVE) Result Diagrams: 01/30/21 06:21 01/30/21 06:21 - Problem List (1) CAD (coronary artery disease) SNOMED Code(s): 68157826 ICD Code: I25.10 - ATHSCL HEART DISEASE OF [place] CORONARY ARTERY W/O ANG PCTRS Status: Acute Current Visit: Yes (2) Depression SNOMED Code(s): 84715013 ICD Code: F32.A - DEPRESSION, UNSPECIFIED Status: Acute Current Visit: Yes (3) Hypoxia SNOMED Code(s): 034016711 ICD Code: R09.02 - HYPOXEMIA Status: Acute Current Visit: No (4) Pneumonia due to COVID-19 virus SNOMED Code(s): 598564402628978937 ICD Code: U07.1 - COVID-19; J12.82 - PNEUMONIA DUE TO CORONAVIRUS DISEASE 2019 Status: Acute Current Visit: No Problem List Initiated/Reviewed/Updated: Yes Orders Last 24hrs: Active Orders 24 hr Category Date Time Status Patient Status [ADT] Routine ADT 01/30/21 13:50 Active Antiembolic Devices [RC] PER UNIT ROUTINE Care 01/30/21 14:26 Active Oxygen Therapy [RC] PRN Care 01/30/21 14:25 Active Oxygen Therapy, ED [RC] ASDIRECTED Care 01/30/21 01:45 Active Peripheral IV Care [RC] Q4HR Care 01/30/21 14:26 Active Up With Assistance [RC] ASDIRECTED Care 01/30/21 14:25 Active VTE/DVT Education [RC] PER UNIT ROUTINE Care 01/30/21 14:25 Active Vital Signs [RC] Q4H Care 01/30/21 14:25 Active Adult Diet [DIET] Diet 01/30/21 Breakfast Active Regular Diet [DIET] Diet 01/30/21 Dinner Active Chest w Cont [CT] Routine Exams 01/30/21 14:20 Ordered Venous Doppler Lwr Ext Bi [US] Routine Exams 01/30/21 14:20 Ordered BASIC METABOLIC PANEL,BMP [CHEM] AM Lab 01/31/21 05:11 Ordered BASIC METABOLIC PANEL,BMP [CHEM] AM Lab 02/01/21 05:11 Ordered BASIC METABOLIC PANEL,BMP [CHEM] AM Lab 02/02/21 05:11 Ordered BASIC METABOLIC PANEL,BMP [CHEM] AM Lab 02/03/21 05:11 Ordered BASIC METABOLIC PANEL,BMP [CHEM] AM Lab 02/04/21 05:11 Ordered BASIC METABOLIC PANEL,BMP [CHEM] AM Lab 02/05/21 05:11 Ordered BASIC METABOLIC PANEL,BMP [CHEM] AM Lab 02/06/21 05:11 Ordered BASIC METABOLIC PANEL,BMP [CHEM] AM Lab 02/07/21 05:11 Ordered BASIC METABOLIC PANEL,BMP [CHEM] AM Lab 02/08/21 05:11 Ordered BASIC METABOLIC PANEL,BMP [CHEM] AM Lab 02/09/21 05:11 Ordered BASIC METABOLIC PANEL,BMP [CHEM] AM Lab 02/10/21 05:11 Ordered BASIC METABOLIC PANEL,BMP [CHEM] AM Lab 02/11/21 05:11 Ordered BASIC METABOLIC PANEL,BMP [CHEM] AM Lab 02/12/21 05:11 Ordered BASIC METABOLIC PANEL,BMP [CHEM] AM Lab 02/13/21 05:11 Ordered BASIC METABOLIC PANEL,BMP [CHEM] AM Lab 02/14/21 05:11 Ordered CBC WITH AUTO DIFF [HEME] AM Lab 01/31/21 05:11 Ordered CBC WITH AUTO DIFF [HEME] AM Lab 02/01/21 05:11 Ordered CBC WITH AUTO DIFF [HEME] AM Lab 02/02/21 05:11 Ordered CBC WITH AUTO DIFF [HEME] AM Lab 02/03/21 05:11 Ordered CBC WITH AUTO DIFF [HEME] AM Lab 02/04/21 05:11 Ordered CBC WITH AUTO DIFF [HEME] AM Lab 02/05/21 05:11 Ordered CBC WITH AUTO DIFF [HEME] AM Lab 02/06/21 05:11 Ordered CBC WITH AUTO DIFF [HEME] AM Lab 02/07/21 05:11 Ordered CBC WITH AUTO DIFF [HEME] AM Lab 02/08/21 05:11 Ordered CBC WITH AUTO DIFF [HEME] AM Lab 02/09/21 05:11 Ordered CBC WITH AUTO DIFF [HEME] AM Lab 02/10/21 05:11 Ordered CBC WITH AUTO DIFF [HEME] AM Lab 02/11/21 05:11 Ordered CBC WITH AUTO DIFF [HEME] AM Lab 02/12/21 05:11 Ordered CBC WITH AUTO DIFF [HEME] AM Lab 02/13/21 05:11 Ordered CBC WITH AUTO DIFF [HEME] AM Lab 02/14/21 05:11 Ordered CULTURE BLOOD [BC] Stat Lab 01/29/21 21:50 Received CULTURE BLOOD [BC] Stat Lab 01/29/21 22:00 Received DD [D-DIMER QUANTITATIVE] [COAG] AM Lab 01/31/21 05:11 Ordered DD [D-DIMER QUANTITATIVE] [COAG] AM Lab 02/01/21 05:11 Ordered DD [D-DIMER QUANTITATIVE] [COAG] AM Lab 02/02/21 05:11 Ordered DD [D-DIMER QUANTITATIVE] [COAG] AM Lab 02/03/21 05:11 Ordered DD [D-DIMER QUANTITATIVE] [COAG] AM Lab 02/04/21 05:11 Ordered DD [D-DIMER QUANTITATIVE] [COAG] AM Lab 02/05/21 05:11 Ordered DD [D-DIMER QUANTITATIVE] [COAG] AM Lab 02/06/21 05:11 Ordered DD [D-DIMER QUANTITATIVE] [COAG] AM Lab 02/07/21 05:11 Ordered DD [D-DIMER QUANTITATIVE] [COAG] AM Lab 02/08/21 05:11 Ordered DD [D-DIMER QUANTITATIVE] [COAG] AM Lab 02/09/21 05:11 Ordered DD [D-DIMER QUANTITATIVE] [COAG] AM Lab 02/10/21 05:11 Ordered DD [D-DIMER QUANTITATIVE] [COAG] AM Lab 02/11/21 05:11 Ordered DD [D-DIMER QUANTITATIVE] [COAG] AM Lab 02/12/21 05:11 Ordered DD [D-DIMER QUANTITATIVE] [COAG] AM Lab 02/13/21 05:11 Ordered HEPATIC FUNCTION PANEL,[facility] [CHEM] AM Lab 01/31/21 05:11 Ordered HEPATIC FUNCTION PANEL,[facility] [CHEM] AM Lab 02/01/21 05:11 Ordered HEPATIC FUNCTION PANEL,[facility] [CHEM] AM Lab 02/02/21 05:11 Ordered HEPATIC FUNCTION PANEL,[facility] [CHEM] AM Lab 02/03/21 05:11 Ordered HEPATIC FUNCTION PANEL,[facility] [CHEM] AM Lab 02/04/21 05:11 Ordered HEPATIC FUNCTION PANEL,[facility] [CHEM] AM Lab 02/05/21 05:11 Ordered HEPATIC FUNCTION PANEL,[facility] [CHEM] AM Lab 02/06/21 05:11 Ordered HEPATIC FUNCTION PANEL,[facility] [CHEM] AM Lab 02/07/21 05:11 Ordered HEPATIC FUNCTION PANEL,[facility] [CHEM] AM Lab 02/08/21 05:11 Ordered HEPATIC FUNCTION PANEL,[facility] [CHEM] AM Lab 02/09/21 05:11 Ordered HEPATIC FUNCTION PANEL,[facility] [CHEM] AM Lab 02/10/21 05:11 Ordered HEPATIC FUNCTION PANEL,[facility] [CHEM] AM Lab 02/11/21 05:11 Ordered HEPATIC FUNCTION PANEL,[facility] [CHEM] AM Lab 02/12/21 05:11 Ordered HEPATIC FUNCTION PANEL,[facility] [CHEM] AM Lab 02/13/21 05:11 Ordered PROCALCITONIN [REF] DAILY Lab 01/30/21 06:21 Received PROCALCITONIN [REF] DAILY Lab 01/31/21 14:15 Ordered PROCALCITONIN [REF] DAILY Lab 02/01/21 14:15 Ordered PROCALCITONIN [REF] DAILY Lab 02/02/21 14:15 Ordered PROCALCITONIN [REF] DAILY Lab 02/03/21 14:15 Ordered PROCALCITONIN [REF] DAILY Lab 02/04/21 14:15 Ordered PROCALCITONIN [REF] DAILY Lab 02/05/21 14:15 Ordered PROCALCITONIN [REF] DAILY Lab 02/06/21 14:15 Ordered PROCALCITONIN [REF] DAILY Lab 02/07/21 14:15 Ordered PROCALCITONIN [REF] DAILY Lab 02/08/21 14:15 Ordered PROCALCITONIN [REF] DAILY Lab 02/09/21 14:15 Ordered PROCALCITONIN [REF] DAILY Lab 02/10/21 14:15 Ordered PROCALCITONIN [REF] DAILY Lab 02/11/21 14:15 Ordered PROCALCITONIN [REF] DAILY Lab 02/12/21 14:15 Ordered TROPONIN I HIGH SENSITIVITY [CHEM] DAILY Lab 01/31/21 05:00 Ordered TROPONIN I HIGH SENSITIVITY [CHEM] DAILY Lab 02/01/21 05:00 Ordered TROPONIN I HIGH SENSITIVITY [CHEM] DAILY Lab 02/02/21 05:00 Ordered TROPONIN I HIGH SENSITIVITY [CHEM] DAILY Lab 02/03/21 05:00 Ordered TROPONIN I HIGH SENSITIVITY [CHEM] DAILY Lab 02/04/21 05:00 Ordered TROPONIN I HIGH SENSITIVITY [CHEM] DAILY Lab 02/05/21 05:00 Ordered TROPONIN I HIGH SENSITIVITY [CHEM] DAILY Lab 02/06/21 05:00 Ordered TROPONIN I HIGH SENSITIVITY [CHEM] DAILY Lab 02/07/21 05:00 Ordered TROPONIN I HIGH SENSITIVITY [CHEM] DAILY Lab 02/08/21 05:00 Ordered TROPONIN I HIGH SENSITIVITY [CHEM] DAILY Lab 02/09/21 05:00 Ordered TROPONIN I HIGH SENSITIVITY [CHEM] DAILY Lab 02/10/21 05:00 Ordered TROPONIN I HIGH SENSITIVITY [CHEM] DAILY Lab 02/11/21 05:00 Ordered TROPONIN I HIGH SENSITIVITY [CHEM] DAILY Lab 02/12/21 05:00 Ordered Acetaminophen [TylenoL] Med 01/30/21 14:22 Ordered 650 mg PO Q6H PRN Acetaminophen [Tylenol Extra Strength] Med 01/30/21 02:08 Active 500 mg PO ONETIME PRN Cholecalciferol (Vitamin D3) [Vitamin D3] Med 01/31/21 09:00 Ordered 25 mcg PO DAILY Clopidogrel [Plavix] Med 01/31/21 09:00 Ordered 75 mg PO DAILY Docusate Sodium [Colace] Med 01/30/21 14:25 Ordered 100 mg PO BID PRN Enoxaparin [Lovenox] Med 01/30/21 21:00 Ordered 80 mg SUBCUT Q12HR Ezetimibe [Zetia] Med 01/31/21 09:00 Ordered 10 mg PO DAILY Multivitamins/Minerals [Vitamins and Minerals] Med 01/31/21 08:00 Ordered 1 tab PO WITHBREAKFAST Omeprazole Med 01/31/21 06:00 Ordered 20 mg PO ACBREAKFAST Ondansetron [Zofran ODT] Med 01/30/21 14:25 Ordered 4 mg PO Q6H PRN Ondansetron [Zofran] Med 01/30/21 02:08 Active 4 mg IVPUSH ONETIME PRN Remdesivir 200 mg Med 01/31/21 09:00 Ordered Sodium Chloride 0.9% [Normal Saline] 250 ml IV DAILY Rosuvastatin [Crestor] Med 01/31/21 09:00 Ordered 10 mg PO DAILY Sodium Chloride 0.9% [Saline Flush] Med 01/30/21 14:25 Ordered 10 ml FLUSH ASDIRECTED PRN Temazepam [Restoril] Med 01/30/21 14:25 Ordered 15 mg PO BEDTIME PRN Venlafaxine HCl [Venlafaxine ER] Med 01/31/21 09:00 Ordered 75 mg PO DAILY carvediloL [Coreg] Med 01/30/21 21:00 Ordered 3.125 mg PO BID dexAMETHasone Med 01/31/21 08:00 Ordered 6 mg PO DAILY@0800 Antiembolic Hose [OM.PC] Per Unit Routine Oth 01/30/21 14:25 Ordered Blood Culture x2 Reflex Set [OM.PC] Stat Oth 01/29/21 21:19 Ordered Peripheral IV Insertion Adult [OM.PC] Routine Oth 01/30/21 14:25 Ordered Saline Lock Insert [OM.PC] Routine Oth 01/30/21 14:25 Ordered Resuscitation Status Stat Resus Stat 01/30/21 02:08 Ordered Medication Orders Acetaminophen (Acetaminophen 500 Mg Tab) 500 mg PO ONETIME PRN PRN Reason: Fever Last Admin: 01/30/21 11:03 Dose: 500 mg Documented by: PAULETTE Acetaminophen (Acetaminophen 325 Mg Tab) 650 mg PO Q6H PRN PRN Reason: Fever Carvedilol (Carvedilol 3.125 Mg Tab) 3.125 mg PO BID [facility] Cholecalciferol (Cholecalciferol (Vitamin D3) 25 Mcg Tab) 25 mcg PO DAILY [facility] Clopidogrel Bisulfate (Clopidogrel 75 Mg Tab) 75 mg PO DAILY [facility] Dexamethasone (Dexamethasone 6 Mg Tablet) 6 mg PO DAILY@0800 [facility] Docusate Sodium (Docusate Sodium 100 Mg Cap) 100 mg PO BID PRN PRN Reason: Constipation Ezetimibe (Ezetimibe 10 Mg Tab) 10 mg PO DAILY [facility] Enoxaparin Sodium (Enoxaparin 80 Mg/0.8 Ml Syringe) 80 mg SUBCUT Q12HR [facility] Remdesivir 200 mg/ Sodium (Chloride) 250 mls @ 250 mls/hr IV DAILY [facility] Stop: 02/03/21 09:59 Multivitamins/Minerals (Multivitamins, Therapeutic With Minerals Tab) 1 tab PO WITHBREAKFAST [facility] Non-Formulary Medication (Venlafaxine Hcl [Venlafaxine Er]) 75 mg PO DAILY [facility] Omeprazole (Omeprazole 20 Mg Cap.Cr) 20 mg PO ACBREAKFAST [facility] Ondansetron HCl (Ondansetron 4 Mg/2 Ml Sdv) 4 mg IVPUSH ONETIME PRN PRN Reason: Nausea Last Admin: 01/30/21 03:29 Dose: 4 mg Documented by: DAJA Ondansetron HCl (Ondansetron 4 Mg Tab.Dis) 4 mg PO Q6H PRN PRN Reason: nausea, able to take PO Rosuvastatin Calcium (Rosuvastatin 10 Mg Tab) 10 mg PO DAILY [facility] Sodium Chloride (Sodium Chloride 0.9% 10 Ml Syringe) 10 ml FLUSH ASDIRECTED PRN PRN Reason: Keep Vein Open Temazepam (Temazepam 15 Mg Cap) 15 mg PO BEDTIME PRN PRN Reason: Sleep Assessment/Plan Comment:: presented with chills, fever, achiness, diarrhea Acute hypoxemic respiratory failure Will supplement oxygen as needed Acute covid 19 pneumonia Vaccination status: unvaccinated Symptom onset: about 01/22/21 Covid test positive: 01/29/21 Treat with dexamethasone Treat with remdesivir Treat with mvi /vit d Follow daily cbc, bmp, trop, procal, ddimer Evaluations for concurrent bacterial pneumonia: Procalcitonin: pending Hold Abx for now Evaluations for thrombotic complications Ddimer: high obtain LE us, ct chest r/o PE Prophylaxis: use therapeutic lovenox Nausea, diarrhea due to covid infection Treat symptomatically CAD Cont Plavix, coreg Hold asa while on full dose anticoagulation Depression/anxiety Cont venlafaxine Code status: discussed on admission : DNR
--- NOTE | 2021-01-30 16:12 | US ---
EXAMINATION: LOWER EXT U/S SEX: Female AGE: 60 years CLINICAL HISTORY: 60-year-old female (COVID Positive) at bed rest with difficulty breathing and elevated serum D dimer (1640). Rule out DVT. Interpretation: Negative exam. No sign of intraluminal echogenic thrombus and normal compressibility deep veins both lower extremities. Satisfactory augmentation and venous waveforms demonstrated respectively in the peroneal/posterior tibial veins both calves, popliteal veins behind both knees, and proximally in the femoral veins both lower extremities. No thrombus (normal Doppler signal) demonstrated in the superficial saphenous veins both lower extremities. No popliteal or Reece's cyst. CONCLUSION: No sonographic evidence deep vein thrombosis lower extremities.
[2021-01-30] MEDS ORDERED: Iopamidol 755 Mg/ML 100 ML Bottle IVPUSH ONE (16:16)
--- NOTE | 2021-01-30 16:31 | CT ---
EXAMINATION: SEX: Female AGE: 60 years CLINICAL HISTORY: 60-year-old 174 pound hospitalized patient (COVID Positive) with shortness of breath (SOB) and abnormally elevated serum D dimer (1640). Negative sonogram lower extremities for DVT. Comparison emergency unenhanced CT chest earlier today revealed "bilateral pneumonia with features associated with COVID19 viral infection". Scan technique: Volume acquisition of data from the chest (bony thorax, lungs and mediastinum) obtained during the intravenous administration of 66 cc nonionic Isovue contrast at 5 cc/s via injector while patient was lying supine on the Siemens multislice scanner [place], [place]. All data archived in the PACS system for storage, reformatting axial/sagittal/coronal planes and study. Interpretation: ABNORMAL. 1. Extensive consolidation throughout both lung snyder (mixed "groundglass" interstitial densities and airspace consolidation with air bronchograms) as noted on CT exam earlier this a.m. consistent with viral pneumonia (differential considerations include pneumoconiosis and/or viral superinfection patient with underlying interstitial lung disease). 2. No underlying lymphadenopathy or associated dependent pleural effusions. 3. *No intraluminal filling defect or thrombus identified in the main pulmonary artery circulation or second tier vessels. 4. No focal lobar oligemia or peripheral "wedge-shaped" pulmonary infarcts with effusions. 5. Normal caliber thoracic aorta. Mild cardiomegaly but no pericardial effusion or vascular congestion/alveolar edema. 6. No lung mass or hilar/mediastinal lymphadenopathy. 7. No pneumothorax or pneumomediastinum. No free subdiaphragmatic air. Cholecystectomy. CONCLUSION: COVID pneumonia, severe. No improvement. *No current signs of pulmonary embolism/infarct. No lung malignancy, heart failure or pleural effusions.
[2021-01-30] MEDS: Carvedilol 3.125 MG Tab PO SCH (17:43)
[2021-01-30] MEDS: Albuterol 6.7 GM Inhaler INH SCH ×2 (17:45→20:56)
[2021-01-30] MEDS: Acetaminophen 325 MG Tab PO PRN ×2 (17:50→22:59)
[2021-01-30] MEDS: Ondansetron 4 MG Tab.DIS PO PRN (17:51)
[2021-01-30] MEDS: Enoxaparin 80 MG/0.8 ML Syringe SUBCUT SCH (20:56)
[2021-01-30] MEDS ORDERED: guaiFENesin 100 MG/5 ML Soln 5 ML UD Cup PO PRN (21:44)
[2021-01-30] MEDS ORDERED: Zolpidem 5 MG Tab PO PRN (21:45)
[2021-01-31] MEDS: Ondansetron 4 MG Tab.DIS PO PRN ×2 (00:48→22:02)
[2021-01-31] MEDS: Acetaminophen 325 MG Tab PO PRN ×4 (06:00→22:01)
[2021-01-31] MEDS: Omeprazole 20 MG Cap.CR PO SCH (06:02)
[2021-01-31 07:55] LABS: ANION GAP 14.3 mEq/L (7-13); CHLORIDE,CL 102 mmol/L (98-107); SODIUM,NA 139 mmol/L (136-145)
[2021-01-31] MEDS ORDERED: Dexamethasone 6 MG TABLET PO SCH (08:00)
[2021-01-31] MEDS ORDERED: REMDESIVIR 200 MG in Sodium Chloride 0.9% 250 ML IV SCH (09:00)
[2021-01-31] MEDS: Enoxaparin 80 MG/0.8 ML Syringe SUBCUT SCH ×2 (09:07→21:35)
[2021-01-31] MEDS: Venlafaxine 37.5 MG Cap.ER PO SCH (09:24)
[2021-01-31] MEDS: Multivitamins, Therapeutic with Minerals Tab PO SCH (09:25)
[2021-01-31] MEDS: Cholecalciferol (Vitamin D3) 25 MCG Tab PO SCH (09:25)
[2021-01-31] MEDS: Ezetimibe 10 MG Tab PO SCH (09:25)
[2021-01-31] MEDS: Rosuvastatin 10 MG Tab PO SCH (09:26)
[2021-01-31] MEDS: Carvedilol 3.125 MG Tab PO SCH ×2 (09:26→18:04)
[2021-01-31] MEDS: Clopidogrel 75 MG Tab PO SCH (09:26)
[2021-01-31] MEDS: REMDESIVIR 100 MG in Sodium Chloride 0.9% 100 ML IV SCH (09:27)
[2021-01-31] MEDS: Albuterol 6.7 GM Inhaler INH SCH ×4 (09:28→21:35)
--- NOTE | 2021-01-31 13:29 | PCM.PN ---
- General Info Date of Service: 01/31/21 Admission Dx/Problem (Free Text): Admission Diagnosis/Problem Admission Diagnosis/Problem Hypoxia Subjective Update: remained stable overnight has been on 100% Vmask and 15 l nc o2 desaturating easily, sats bordelrine - high 80s-low 90s feels depressed, anxious but not is significant respiratory distress Functional Status: Reports: Pain Controlled. Denies: Ambulating - Review of Systems General: Reports: Fever Pulmonary: Reports: Shortness of Breath, Cough. Denies: Sputum, Wheezing Cardiovascular: Denies: Chest Pain Gastrointestinal: Denies: Abdominal Pain Psychiatric: Denies: Confusion - Patient Data Vitals - Most Recent: Last Vital Signs Temp 98.6 F 01/31/21 10:00 Pulse 84 01/31/21 09:26 Resp 24 H 01/31/21 05:00 BP 121/82 01/31/21 09:26 Pulse Ox 94 L 01/31/21 05:00 Weight - Most Recent: 174 lb I&O - Last 24 Hours: Intake & Output 01/30/21 01/31/21 01/31/21 22:59 06:59 14:59 Intake Total 120 120 Balance 120 120 Lab Results Last 24 Hours: Laboratory Results - last 24 hr 01/31/21 01/31/21 01/31/21 Range/Units 06:36 06:36 06:36 WBC 8.4 (5.0-10.0) 10^3/uL RBC 4.25 (4.2-5.4) 10^6/uL Hgb 12.8 (12.0-16.0) g/dL Hct 39.5 (37.0-47.0) % MCV 92.9 (80-100) fL MCH 30.1 (27.0-34.0) pg MCHC 32.4 L (33.0-35.0) g/dL Plt Count 361 (150-450) 10^3/uL Neut % (Auto) 85.9 H (42.2-75.2) % Lymph % (Auto) 11.0 L (20.5-50.1) % [place] % (Auto) 3.0 (2-8) % Eos % (Auto) 0.0 L (1.0-3.0) % Baso % (Auto) 0.1 (0.0-1.0) % D-Dimer, Quantitative 2250 H (0-400) ng/mL Sodium (136-145) mmol/L Potassium (3.5-5.1) mmol/L Chloride (98-107) mmol/L Carbon Dioxide (21-32) mmol/L Anion Gap (7-13) mEq/L BUN (7-18) mg/dL Creatinine (0.55-1.02) mg/dL Est Cr Clr Drug Dosing mL/min Estimated GFR (MDRD) Glucose (70-99) mg/dL Calcium (8.5-10.1) mg/dL Total Bilirubin (0.2-1.0) mg/dL Direct Bilirubin (0.0-0.2) mg/dL Indirect Bilirubin AST (15-37) U/L ALT (14-59) U/L Alkaline Phosphatase (46-116) U/L Troponin I High Sens 10 (<=51) pg/mL Total Protein (6.4-8.2) g/dL Albumin (3.4-5.0) g/dL Globulin Albumin/Globulin Ratio 01/31/21 Range/Units 06:36 WBC (5.0-10.0) 10^3/uL RBC (4.2-5.4) 10^6/uL Hgb (12.0-16.0) g/dL Hct (37.0-47.0) % MCV (80-100) fL MCH (27.0-34.0) pg MCHC (33.0-35.0) g/dL Plt Count (150-450) 10^3/uL Neut % (Auto) (42.2-75.2) % Lymph % (Auto) (20.5-50.1) % [place] % (Auto) (2-8) % Eos % (Auto) (1.0-3.0) % Baso % (Auto) (0.0-1.0) % D-Dimer, Quantitative (0-400) ng/mL Sodium 139 (136-145) mmol/L Potassium 4.3 (3.5-5.1) mmol/L Chloride 102 (98-107) mmol/L Carbon Dioxide 27 (21-32) mmol/L Anion Gap 14.3 H (7-13) mEq/L BUN 17 (7-18) mg/dL Creatinine 0.74 (0.55-1.02) mg/dL Est Cr Clr Drug Dosing 68.94 mL/min Estimated GFR (MDRD) > 60 Glucose 96 (70-99) mg/dL Calcium 8.9 (8.5-10.1) mg/dL Total Bilirubin 0.5 (0.2-1.0) mg/dL Direct Bilirubin 0.1 (0.0-0.2) mg/dL Indirect Bilirubin 0.4 AST 46 H (15-37) U/L ALT 21 (14-59) U/L Alkaline Phosphatase 92 (46-116) U/L Troponin I High Sens (<=51) pg/mL Total Protein 7.4 (6.4-8.2) g/dL Albumin 2.4 L (3.4-5.0) g/dL Globulin 5.0 Albumin/Globulin Ratio 0.48 Abelardo Results Last 24 Hours: Microbiology 01/29/21 22:00 Aerobic Blood Culture - Preliminary Blood - Venous - Lab Draw NO GROWTH AFTER 1 DAY Anaerobic Blood Culture - Preliminary NO GROWTH AFTER 1 DAY 01/29/21 21:50 Aerobic Blood Culture - Preliminary Blood - Venous NO GROWTH AFTER 1 DAY Anaerobic Blood Culture - Preliminary NO GROWTH AFTER 1 DAY Med Orders - Current: Current Medications Acetaminophen (Acetaminophen 500 Mg Tab) 500 mg PO ONETIME PRN PRN Reason: Fever Last Admin: 01/30/21 11:03 Dose: 500 mg Documented by: Acetaminophen (Acetaminophen 325 Mg Tab) 650 mg PO Q6H PRN PRN Reason: Fever Last Admin: 01/31/21 09:30 Dose: 650 mg Documented by: Albuterol (Albuterol 6.7 Gm Inhaler) 0 gm INH QIDRT [facility] Last Admin: 01/31/21 12:31 Dose: 2 puff Documented by: Carvedilol (Carvedilol 3.125 Mg Tab) 3.125 mg PO BIDMEALS [facility] Last Admin: 01/31/21 09:26 Dose: 3.125 mg Documented by: Cholecalciferol (Cholecalciferol (Vitamin D3) 25 Mcg Tab) 25 mcg PO DAILY [facility] Last Admin: 01/31/21 09:25 Dose: 25 mcg Documented by: Clopidogrel Bisulfate (Clopidogrel 75 Mg Tab) 75 mg PO DAILY [facility] Last Admin: 01/31/21 09:26 Dose: 75 mg Documented by: Dexamethasone (Dexamethasone 6 Mg Tablet) 6 mg PO DAILY@0800 [facility] Last Admin: 01/31/21 09:25 Dose: 6 mg Documented by: Docusate Sodium (Docusate Sodium 100 Mg Cap) 100 mg PO BID PRN PRN Reason: Constipation Ezetimibe (Ezetimibe 10 Mg Tab) 10 mg PO DAILY [facility] Last Admin: 01/31/21 09:25 Dose: 10 mg Documented by: Enoxaparin Sodium (Enoxaparin 80 Mg/0.8 Ml Syringe) 80 mg SUBCUT Q12HR [facility] Last Admin: 01/31/21 09:07 Dose: 80 mg Documented by: Guaifenesin (Guaifenesin 100 Mg/5 Ml Soln 5 Ml Ud Cup) 100 mg PO Q6H PRN PRN Reason: Cough Last Admin: 01/30/21 22:55 Dose: 100 mg Documented by: Remdesivir 100 mg/ Sodium (Chloride) 100 mls @ 100 mls/hr IV Q24H [facility] Stop: 02/03/21 09:59 Last Admin: 01/31/21 09:27 Dose: 100 mls/hr Documented by: Multivitamins/Minerals (Multivitamins, Therapeutic With Minerals Tab) 1 tab PO WITHBREAKFAST [facility] Last Admin: 01/31/21 09:25 Dose: 1 tab Documented by: Omeprazole (Omeprazole 20 Mg Cap.Cr) 20 mg PO ACBREAKFAST [facility] Last Admin: 01/31/21 06:02 Dose: 20 mg Documented by: Ondansetron HCl (Ondansetron 4 Mg/2 Ml Sdv) 4 mg IVPUSH ONETIME PRN PRN Reason: Nausea Last Admin: 01/30/21 03:29 Dose: 4 mg Documented by: Ondansetron HCl (Ondansetron 4 Mg Tab.Dis) 4 mg PO Q6H PRN PRN Reason: nausea, able to take PO Last Admin: 01/31/21 00:48 Dose: 4 mg Documented by: Rosuvastatin Calcium (Rosuvastatin 10 Mg Tab) 10 mg PO DAILY [facility] Last Admin: 01/31/21 09:26 Dose: 10 mg Documented by: Sodium Chloride (Sodium Chloride 0.9% 10 Ml Syringe) 10 ml FLUSH ASDIRECTED PRN PRN Reason: Keep Vein Open Temazepam (Temazepam 15 Mg Cap) 15 mg PO BEDTIME PRN PRN Reason: Sleep Venlafaxine HCl (Venlafaxine 37.5 Mg Cap.Er) 75 mg PO DAILY [facility] Last Admin: 01/31/21 09:24 Dose: 75 mg Documented by: Zolpidem Tartrate (Zolpidem 5 Mg Tab) 5 mg PO BEDTIME PRN PRN Reason: Sleep Last Admin: 01/30/21 22:55 Dose: 5 mg Documented by: Discontinued Medications Acetaminophen (Acetaminophen 325 Mg Tab) 650 mg PO NOW ONE Stop: 01/29/21 23:28 Last Admin: 01/30/21 00:07 Dose: 650 mg Documented by: Clopidogrel Bisulfate (Clopidogrel 75 Mg Tab) 75 mg PO ONETIME ONE Stop: 01/30/21 07:01 Last Admin: 01/30/21 08:14 Dose: 75 mg Documented by: Dexamethasone (Dexamethasone 4 Mg/Ml Sdv) 6 mg IVPUSH ONETIME ONE Stop: 01/29/21 22:32 Last Admin: 01/29/21 22:49 Dose: 6 mg Documented by: Enoxaparin Sodium (Enoxaparin 40 Mg/0.4 Ml Syringe) 40 mg SUBCUT ONETIME ONE Stop: 01/30/21 02:25 Last Admin: 01/30/21 03:15 Dose: 40 mg Documented by: Sodium Chloride (Normal Saline) 1,000 mls @ 100 mls/hr IV .BOLUS ONE Stop: 01/30/21 08:08 Last Admin: 01/30/21 00:07 Dose: 100 mls/hr Documented by: Levofloxacin/Dextrose 500 mg/ (Premix) 100 mls @ 100 mls/hr IV ONETIME ONE Stop: 01/29/21 23:24 Last Admin: 01/29/21 22:53 Dose: 100 mls/hr Documented by: Remdesivir 200 mg/ Sodium (Chloride) 250 mls @ 250 mls/hr IV ONETIME ONE Stop: 01/30/21 03:24 Last Admin: 01/30/21 03:14 Dose: 250 mls/hr Documented by: Remdesivir 200 mg/ Sodium (Chloride) 250 mls @ 250 mls/hr IV DAILY [facility] Stop: 02/03/21 09:59 Iopamidol (Iopamidol 755 Mg/Ml 100 Ml Bottle) 100 ml IVPUSH ONETIME ONE Stop: 01/30/21 16:17 Last Admin: 01/30/21 16:21 Dose: 66 ml Documented by: Omeprazole (Omeprazole 20 Mg Cap.Cr) 20 mg PO ONETIME ONE Stop: 01/30/21 07:01 Last Admin: 01/30/21 06:26 Dose: 20 mg Documented by: Promethazine HCl/Codeine (Codeine/Promethazine 10-6.25 Mg/5 Ml Syrup 5 Ml Ud Cup) 10 ml PO ONETIME ONE Stop: 01/30/21 11:07 Last Admin: 01/30/21 11:14 Dose: 10 ml Documented by: Venlafaxine HCl (Venlafaxine 37.5 Mg Cap.Er) 75 mg PO WITHBREAKFAST ONE Stop: 01/30/21 07:01 Last Admin: 01/30/21 08:14 Dose: 75 mg Documented by: - Exam Quality Assessment: Supplemental Oxygen (vmask, NC oxygen) General: Alert, Oriented Lungs: Rhonchi. No: Normal Respiratory Effort (increased ), Wheezing Cardiovascular: Regular Rate, Regular Rhythm GI/Abdominal Exam: Normal Bowel Sounds, Soft Extremities: No Pedal Edema - Patient Data Lab Results Last 24 hrs: Laboratory Results - last 24 hr 01/31/21 01/31/21 01/31/21 Range/Units 06:36 06:36 06:36 WBC 8.4 (5.0-10.0) 10^3/uL RBC 4.25 (4.2-5.4) 10^6/uL Hgb 12.8 (12.0-16.0) g/dL Hct 39.5 (37.0-47.0) % MCV 92.9 (80-100) fL MCH 30.1 (27.0-34.0) pg MCHC 32.4 L (33.0-35.0) g/dL Plt Count 361 (150-450) 10^3/uL Neut % (Auto) 85.9 H (42.2-75.2) % Lymph % (Auto) 11.0 L (20.5-50.1) % [place] % (Auto) 3.0 (2-8) % Eos % (Auto) 0.0 L (1.0-3.0) % Baso % (Auto) 0.1 (0.0-1.0) % D-Dimer, Quantitative 2250 H (0-400) ng/mL Sodium (136-145) mmol/L Potassium (3.5-5.1) mmol/L Chloride (98-107) mmol/L Carbon Dioxide (21-32) mmol/L Anion Gap (7-13) mEq/L BUN (7-18) mg/dL Creatinine (0.55-1.02) mg/dL Est Cr Clr Drug Dosing mL/min Estimated GFR (MDRD) Glucose (70-99) mg/dL Calcium (8.5-10.1) mg/dL Total Bilirubin (0.2-1.0) mg/dL Direct Bilirubin (0.0-0.2) mg/dL Indirect Bilirubin AST (15-37) U/L ALT (14-59) U/L Alkaline Phosphatase (46-116) U/L Troponin I High Sens 10 (<=51) pg/mL Total Protein (6.4-8.2) g/dL Albumin (3.4-5.0) g/dL Globulin Albumin/Globulin Ratio 01/31/21 Range/Units 06:36 WBC (5.0-10.0) 10^3/uL RBC (4.2-5.4) 10^6/uL Hgb (12.0-16.0) g/dL Hct (37.0-47.0) % MCV (80-100) fL MCH (27.0-34.0) pg MCHC (33.0-35.0) g/dL Plt Count (150-450) 10^3/uL Neut % (Auto) (42.2-75.2) % Lymph % (Auto) (20.5-50.1) % [place] % (Auto) (2-8) % Eos % (Auto) (1.0-3.0) % Baso % (Auto) (0.0-1.0) % D-Dimer, Quantitative (0-400) ng/mL Sodium 139 (136-145) mmol/L Potassium 4.3 (3.5-5.1) mmol/L Chloride 102 (98-107) mmol/L Carbon Dioxide 27 (21-32) mmol/L Anion Gap 14.3 H (7-13) mEq/L BUN 17 (7-18) mg/dL Creatinine 0.74 (0.55-1.02) mg/dL Est Cr Clr Drug Dosing 68.94 mL/min Estimated GFR (MDRD) > 60 Glucose 96 (70-99) mg/dL Calcium 8.9 (8.5-10.1) mg/dL Total Bilirubin 0.5 (0.2-1.0) mg/dL Direct Bilirubin 0.1 (0.0-0.2) mg/dL Indirect Bilirubin 0.4 AST 46 H (15-37) U/L ALT 21 (14-59) U/L Alkaline Phosphatase 92 (46-116) U/L Troponin I High Sens (<=51) pg/mL Total Protein 7.4 (6.4-8.2) g/dL Albumin 2.4 L (3.4-5.0) g/dL Globulin 5.0 Albumin/Globulin Ratio 0.48 Result Diagrams: 01/31/21 06:36 01/31/21 06:36 Abelardo Results Last 24 hrs: Microbiology 01/29/21 22:00 Aerobic Blood Culture - Preliminary Blood - Venous - Lab Draw NO GROWTH AFTER 1 DAY Anaerobic Blood Culture - Preliminary NO GROWTH AFTER 1 DAY 01/29/21 21:50 Aerobic Blood Culture - Preliminary Blood - Venous NO GROWTH AFTER 1 DAY Anaerobic Blood Culture - Preliminary NO GROWTH AFTER 1 DAY Sepsis Event Note - Evaluation Sepsis Screening Result: No Definite Risk - Focused Exam Vital Signs: Vital Signs Temp Temp Pulse Pulse Resp BP BP 01/31/21 10:00 98.6 F 01/31/21 09:30 214.3 F H 01/31/21 09:26 84 121/82 01/31/21 05:00 100.3 F 69 24 H 120/42 L Pulse Ox 01/31/21 10:00 01/31/21 09:30 01/31/21 09:26 01/31/21 05:00 94 L - Problem List & Annotations (1) CAD (coronary artery disease) SNOMED Code(s): 82606496 Code(s): I25.10 - ATHSCL HEART DISEASE OF L[place] CORONARY ARTERY W/O ANG PCTRS Status: Acute Current Visit: Yes (2) Depression SNOMED Code(s): 14226253 Code(s): F32.A - DEPRESSION, UNSPECIFIED Status: Acute Current Visit: Yes (3) Hypoxia SNOMED Code(s): 576299512 Code(s): R09.02 - HYPOXEMIA Status: Acute Current Visit: No (4) Pneumonia due to COVID-19 virus SNOMED Code(s): 655975191752898457 Code(s): U07.1 - COVID-19; J12.82 - PNEUMONIA DUE TO CORONAVIRUS DISEASE 2019 Status: Acute Current Visit: No - Problem List Review Problem List Initiated/Reviewed/Updated: Yes - My Orders Last 24 Hours: My Active Orders 01/30/21 13:50 Patient Status [ADT] Routine 01/30/21 14:22 Acetaminophen [TylenoL] 650 mg PO Q6H PRN 01/30/21 14:25 Oxygen Therapy [RC] PRN Up With Assistance [RC] ASDIRECTED VTE/DVT Education [RC] PER UNIT ROUTINE Vital Signs [RC] Q4H Docusate Sodium [Colace] 100 mg PO BID PRN Ondansetron [Zofran ODT] 4 mg PO Q6H PRN Sodium Chloride 0.9% [Saline Flush] 10 ml FLUSH ASDIRECTED PRN Temazepam [Restoril] 15 mg PO BEDTIME PRN Antiembolic Hose [OM.PC] Per Unit Routine Peripheral IV Insertion Adult [OM.PC] Routine Saline Lock Insert [OM.PC] Routine 01/30/21 14:26 Antiembolic Devices [RC] PER UNIT ROUTINE Peripheral IV Care [RC] Q4HR 01/30/21 14:53 Code Status [Resuscitation Status] Routine 01/30/21 15:52 RT Post Treatment Assessment [RC] Click to Edit RT Pre-Treatment Assessment [RC] Click to Edit 01/30/21 17:00 Albuterol [Proventil HFA] 0 gm INH QIDRT 01/30/21 Dinner Regular Diet [DIET] 01/30/21 18:00 carvediloL [Coreg] 3.125 mg PO BIDMEALS 01/30/21 21:00 Enoxaparin [Lovenox] 80 mg SUBCUT Q12HR 01/30/21 21:44 guaiFENesin [Robitussin] 100 mg PO Q6H PRN 01/30/21 21:45 Zolpidem [Ambien] 5 mg PO BEDTIME PRN 01/31/21 06:00 Omeprazole 20 mg PO ACBREAKFAST 01/31/21 06:36 PROCALCITONIN [REF] DAILY 01/31/21 08:00 Multivitamins/Minerals [Vitamins and Minerals] 1 tab PO WITHBREAKFAST dexAMETHasone 6 mg PO DAILY@0800 01/31/21 09:00 Cholecalciferol (Vitamin D3) [Vitamin D3] 25 mcg PO DAILY Clopidogrel [Plavix] 75 mg PO DAILY Ezetimibe [Zetia] 10 mg PO DAILY Remdesivir 100 mg Sodium Chloride 0.9% [Normal Saline AdvBag] 100 ml IV Q24H Rosuvastatin [Crestor] 10 mg PO DAILY Venlafaxine [Effexor XR] 75 mg PO DAILY 02/01/21 05:00 TROPONIN I HIGH SENSITIVITY [CHEM] DAILY 02/01/21 05:11 BASIC METABOLIC PANEL,BMP [CHEM] AM CBC WITH AUTO DIFF [HEME] AM DD [D-DIMER QUANTITATIVE] [COAG] AM HEPATIC FUNCTION PANEL,[facility] [CHEM] AM 02/01/21 14:15 PROCALCITONIN [REF] DAILY 02/02/21 05:00 TROPONIN I HIGH SENSITIVITY [CHEM] DAILY 02/02/21 05:11 BASIC METABOLIC PANEL,BMP [CHEM] AM CBC WITH AUTO DIFF [HEME] AM DD [D-DIMER QUANTITATIVE] [COAG] AM HEPATIC FUNCTION PANEL,[facility] [CHEM] AM 02/02/21 14:15 PROCALCITONIN [REF] DAILY 02/03/21 05:00 TROPONIN I HIGH SENSITIVITY [CHEM] DAILY 02/03/21 05:11 BASIC METABOLIC PANEL,BMP [CHEM] AM CBC WITH AUTO DIFF [HEME] AM DD [D-DIMER QUANTITATIVE] [COAG] AM HEPATIC FUNCTION PANEL,[facility] [CHEM] AM 02/03/21 14:15 PROCALCITONIN [REF] DAILY 02/04/21 05:00 TROPONIN I HIGH SENSITIVITY [CHEM] DAILY 02/04/21 05:11 BASIC METABOLIC PANEL,BMP [CHEM] AM CBC WITH AUTO DIFF [HEME] AM DD [D-DIMER QUANTITATIVE] [COAG] AM HEPATIC FUNCTION PANEL,[facility] [CHEM] AM 02/04/21 14:15 PROCALCITONIN [REF] DAILY 02/05/21 05:00 TROPONIN I HIGH SENSITIVITY [CHEM] DAILY 02/05/21 05:11 BASIC METABOLIC PANEL,BMP [CHEM] AM CBC WITH AUTO DIFF [HEME] AM DD [D-DIMER QUANTITATIVE] [COAG] AM HEPATIC FUNCTION PANEL,[facility] [CHEM] AM 11/16/21 14:15 PROCALCITONIN [REF] DAILY 02/06/21 05:00 TROPONIN I HIGH SENSITIVITY [CHEM] DAILY 02/06/21 05:11 BASIC METABOLIC PANEL,BMP [CHEM] AM CBC WITH AUTO DIFF [HEME] AM DD [D-DIMER QUANTITATIVE] [COAG] AM HEPATIC FUNCTION PANEL,[facility] [CHEM] AM 02/06/21 14:15 PROCALCITONIN [REF] DAILY 02/07/21 05:00 TROPONIN I HIGH SENSITIVITY [CHEM] DAILY 02/07/21 05:11 BASIC METABOLIC PANEL,BMP [CHEM] AM CBC WITH AUTO DIFF [HEME] AM DD [D-DIMER QUANTITATIVE] [COAG] AM HEPATIC FUNCTION PANEL,[facility] [CHEM] AM 02/07/21 14:15 PROCALCITONIN [REF] DAILY 02/08/21 05:00 TROPONIN I HIGH SENSITIVITY [CHEM] DAILY 02/08/21 05:11 BASIC METABOLIC PANEL,BMP [CHEM] AM CBC WITH AUTO DIFF [HEME] AM DD [D-DIMER QUANTITATIVE] [COAG] AM HEPATIC FUNCTION PANEL,[facility] [CHEM] AM 02/08/21 14:15 PROCALCITONIN [REF] DAILY 02/09/21 05:00 TROPONIN I HIGH SENSITIVITY [CHEM] DAILY 02/09/21 05:11 BASIC METABOLIC PANEL,BMP [CHEM] AM CBC WITH AUTO DIFF [HEME] AM DD [D-DIMER QUANTITATIVE] [COAG] AM HEPATIC FUNCTION PANEL,[facility] [CHEM] AM 02/09/21 14:15 PROCALCITONIN [REF] DAILY 02/10/21 05:00 TROPONIN I HIGH SENSITIVITY [CHEM] DAILY 02/10/21 05:11 BASIC METABOLIC PANEL,BMP [CHEM] AM CBC WITH AUTO DIFF [HEME] AM DD [D-DIMER QUANTITATIVE] [COAG] AM HEPATIC FUNCTION PANEL,[facility] [CHEM] AM 02/10/21 14:15 PROCALCITONIN [REF] DAILY 02/11/21 05:00 TROPONIN I HIGH SENSITIVITY [CHEM] DAILY 02/11/21 05:11 BASIC METABOLIC PANEL,BMP [CHEM] AM CBC WITH AUTO DIFF [HEME] AM DD [D-DIMER QUANTITATIVE] [COAG] AM HEPATIC FUNCTION PANEL,[facility] [CHEM] AM 02/11/21 14:15 PROCALCITONIN [REF] DAILY 02/12/21 05:00 TROPONIN I HIGH SENSITIVITY [CHEM] DAILY 02/12/21 05:11 BASIC METABOLIC PANEL,BMP [CHEM] AM CBC WITH AUTO DIFF [HEME] AM DD [D-DIMER QUANTITATIVE] [COAG] AM HEPATIC FUNCTION PANEL,[facility] [CHEM] AM 02/12/21 14:15 PROCALCITONIN [REF] DAILY 02/13/21 05:11 BASIC METABOLIC PANEL,BMP [CHEM] AM CBC WITH AUTO DIFF [HEME] AM DD [D-DIMER QUANTITATIVE] [COAG] AM HEPATIC FUNCTION PANEL,[facility] [CHEM] AM 02/14/21 05:11 BASIC METABOLIC PANEL,BMP [CHEM] AM CBC WITH AUTO DIFF [HEME] AM - Plan Plan:: presented with chills, fever, achiness, diarrhea Acute hypoxemic respiratory failure she is requiring very high level of oxygen support Will supplement oxygen as needed discussed options of bipap, intubation with pt and daughter (Olivia) - pt would like to be intubated if needed 01/31/21 she confirms DNR status Acute covid 19 pneumonia Vaccination status: unvaccinated Symptom onset: about 01/22/21 Covid test positive: 01/29/21 Treat with dexamethasone Treat with remdesivir Treat with mvi /vit d Follow daily cbc, bmp, trop, procal, ddimer Evaluations for concurrent bacterial pneumonia: Procalcitonin: pending Hold Abx for now Evaluations for thrombotic complications Ddimer: high - LE us negative for dvt, ct chest negative for PE Prophylaxis: use therapeutic lovenox Nausea, diarrhea due to covid infection Treat symptomatically CAD Cont Plavix, coreg Hold asa while on full dose anticoagulation Depression/anxiety Cont venlafaxine Code status: discussed on admission and on 01/31 : DNR poor prognosis d/w daughter Kris patient's status is critical - requiring high level of oxygen support, high risk of organ failure, progression critical time spent was more than 35 min
[2021-01-31 20:15] LABS: ALLEN TEST POSITIVE; BASE EXCESS ARTERIAL 3 mmol/L ((-2)-(+3)); BICARBONATE,ARTERIAL 26.7 mmol/L (22-26); O2 DELIVERY DEVICE HI FLOW NASAL CANNU; O2 SATURATION ARTERIAL 91 % (95-100); PCO2 ARTERIAL 38 mmHg (35-45); PO2 ARTERIAL 58 mmHg (70-100)
[2021-02-01] MEDS: LORazepam 2 MG/ML SDV IVPUSH PRN ×2 (02:21→10:34)
[2021-02-01 03:30] LABS: O2 DELIVERY DEVICE BIPAP; PCO2 ARTERIAL 37 mmHg (35-45); PO2 ARTERIAL 58 mmHg (70-100)
[2021-02-01 03:31] LABS: ALLEN TEST POSITIVE; BASE EXCESS ARTERIAL 3 mmol/L ((-2)-(+3)); BICARBONATE,ARTERIAL 26.6 mmol/L (22-26); O2 SATURATION ARTERIAL 89 % (95-100)
[2021-02-01] MEDS ORDERED: Morphine 2 MG/ML SYRINGE IVPUSH ONE (03:45)
[2021-02-01] MEDS: Omeprazole 20 MG Cap.CR PO SCH (05:54)
[2021-02-01 07:13] LABS: ANION GAP 13.2 mEq/L (7-13); CHLORIDE,CL 103 mmol/L (98-107); SODIUM,NA 139 mmol/L (136-145)
[2021-02-01] MEDS ORDERED: Morphine 2 MG/ML SYRINGE IVPUSH PRN (08:48)
[2021-02-01] MEDS ORDERED: Dexamethasone 4 MG/ML SDV IVPUSH SCH (09:00)
[2021-02-01] MEDS: Enoxaparin 80 MG/0.8 ML Syringe SUBCUT SCH (10:39)
[2021-02-01] MEDS: REMDESIVIR 100 MG in Sodium Chloride 0.9% 100 ML IV SCH (10:39)
[2021-02-01] MEDS: Albuterol 6.7 GM Inhaler INH SCH ×2 (11:04→11:05)
[2021-02-01] MEDS: Cholecalciferol (Vitamin D3) 25 MCG Tab PO SCH (11:05)
[2021-02-01] MEDS: Ezetimibe 10 MG Tab PO SCH (11:05)
[2021-02-01] MEDS: Venlafaxine 37.5 MG Cap.ER PO SCH (11:05)
[2021-02-01] MEDS: Carvedilol 3.125 MG Tab PO SCH (11:05)
[2021-02-01] MEDS: Clopidogrel 75 MG Tab PO SCH (11:05)
[2021-02-01] MEDS: Multivitamins, Therapeutic with Minerals Tab PO SCH (11:05)
[2021-02-01] MEDS: Rosuvastatin 10 MG Tab PO SCH (11:05)
[2021-02-01] MEDS ORDERED: Midazolam 50 MG in Sodium Chloride 0.9% 40 ML IV SCH ×2 (11:30→12:00)
[2021-02-01] MEDS ORDERED: fentaNYL 500 MCG in Sodium Chloride 0.9% 50 ML IV SCH (11:45)
[2021-02-01] MEDS ORDERED: propofoL 100 ML IV SCH (11:45)
[2021-02-01] MEDS ORDERED: Naloxone 2 MG/2 ML Syringe IVPUSH PRN (11:52)
[2021-02-01] MEDS ORDERED: fentaNYL Citrate/PF 1,500 MCG/30 ML PCA Vial IV SCH (12:00)
[2021-02-01] MEDS ORDERED: Acetaminophen 650 MG Supp RECTAL ONE (12:30)
--- NOTE | 2021-02-01 12:37 | CR ---
EXAMINATION: Chest 1V Frontal SEX: Female AGE: 60 years CLINICAL HISTORY: 60-year-old female with extreme shortness of breath (intubated) reported have "severe COVID pneumonia; no pulmonary emboli" on recent CT chest 30 January. Interpretation: Abnormal. 1. Now complete opacification of both lung snyder without air bronchograms or pleural effusion. 2. Tip of the recently placed airway lies 2.1 cm from the tracheal bronchial bifurcation. 3. Note: *Nasogastric tube kinked in the lower esophagus and doubles back cephalad fashion i.e. abnormal placement. 4. Normal cardiac silhouette (size and configuration). 5. No pneumothorax or pneumomediastinum.
--- NOTE | 2021-02-01 14:04 | PCM.DCSUM1 ---
Discharge Summary - Hospital Course Free Text/Narrative:: presented with chills, fever, achiness, diarrhea Acute hypoxemic respiratory failure she has been requiring increasing level of oxygen support initially on nc then nc+vmask then bipap - requiring 100%oxygen with 16/10 pressures, Tvolume 4-500 sats were still high 80s, low 90s with RR30s difficulty recoverng after desat with movements plan to transfer to higher level of care will intubate for transfer and respiratory failure 01/31/21 she confirmed DNR status Acute covid 19 pneumonia Vaccination status: unvaccinated Symptom onset: about 01/22/21 Covid test positive: 01/29/21 Treated with dexamethasone Treated with remdesivir Treated with mvi /vit d Evaluations for concurrent bacterial pneumonia: Procalcitonin: pending - send out test Hold Abx for now Evaluations for thrombotic complications Ddimer: high - LE us negative for dvt, ct chest negative for PE Prophylaxis: use therapeutic lovenox dose Nausea, diarrhea due to covid infection resolved CAD Cont Plavix, coreg Hold asa while on full dose anticoagulation Depression/anxiety Cont venlafaxine plan to transfer to higher level of care after intubation Diagnosis: Stroke: No - Discharge Data Discharge Date: 02/01/21 Discharge Disposition: DC/Tfer to Acute Hospital 02 Condition: Good - Referral to Home Health Primary Care Physician: PCP None - Discharge Diagnosis/Problem(s) (1) CAD (coronary artery disease) SNOMED Code(s): 08215306 ICD Code: I25.10 - ATHSCL HEART DISEASE OF [place] CORONARY ARTERY W/O ANG PCTRS Status: Acute Current Visit: Yes (2) Depression SNOMED Code(s): 53908747 ICD Code: F32.A - DEPRESSION, UNSPECIFIED Status: Acute Current Visit: Yes (3) Hypoxia SNOMED Code(s): 911756088 ICD Code: R09.02 - HYPOXEMIA Status: Acute Current Visit: No (4) Pneumonia due to COVID-19 virus SNOMED Code(s): 759362649345936364 ICD Code: U07.1 - COVID-19; J12.82 - PNEUMONIA DUE TO CORONAVIRUS DISEASE 2019 Status: Acute Current Visit: No - Patient Instructions Diet: NPO Activity: Bedrest - Discharge Plan *PRESCRIPTION DRUG MONITORING PROGRAM REVIEWED*: No *COPY OF PRESCRIPTION DRUG MONITORING REPORT IN PATIENT TINA: No Home Medications: Home Meds RX: Aspirin [Halfprin] 81 mg PO DAILY 08/03/15 [History] RX: Clopidogrel [Plavix] 75 mg PO DAILY 08/03/15 [History] RX: Venlafaxine HCl [Venlafaxine ER] 75 mg PO DAILY 08/03/15 [History] RX: carvediloL [Carvedilol] 3.125 mg PO BID 08/03/15 [History] RX: Nitroglycerin [Nitrostat] 0.4 mg PO ASDIRECTED 08/04/18 [History] RX: Rosuvastatin [Crestor] 10 mg PO DAILY 08/04/18 [History] RX: Ubidecarenone [Coenzyme Q10] 10 mg PO DAILY 08/04/18 [History] RX: Vit A/C/E AC/Znox/Cupric Oxide [Eye Vitamin-Minerals Tablet] 1 tab PO DAILY 08/04/18 [History] RX: Omeprazole 20 mg PO ACBREAKFAST 07/06/20 [History] RX: Cholecalciferol (Vitamin D3) [Vitamin D3] 25 mcg PO DAILY tablet 02/01/21 [Rx] RX: Docusate Sodium [Colace] 100 mg PO BID PRN cap 02/01/21 [Rx] RX: Enoxaparin [Lovenox] 80 mg SUBCUT Q12HR syringe 02/01/21 [Rx] RX: LORazepam [Ativan] 1 mg IVPUSH Q4H PRN vial 02/01/21 [Rx] RX: Midazolam [Versed 5 MG/ML] 50 mg IV ASDIRECTED vial 02/01/21 [Rx] RX: Morphine 1 mg IVPUSH Q1H PRN syringe 02/01/21 [Rx] RX: Multivitamins/Minerals [Vitamins and Minerals] 1 tab PO WITHBREAKFAST tablet 02/01/21 [Rx] RX: Ondansetron [Zofran ODT] 4 mg PO Q6H PRN tab.dis 02/01/21 [Rx] RX: Remdesivir 100 mg IV Q24H vial 02/01/21 [Rx] RX: Temazepam [Restoril] 15 mg PO BEDTIME PRN cap 02/01/21 [Rx] RX: dexAMETHasone [Decadron] 6 mg IVPUSH DAILY sdv 02/01/21 [Rx] RX: fentaNYL Citrate/PF [Fentanyl 1,500 MCG/30 ML - Water [employer]] 0 mcg IV ASDIRECTED vial 02/01/21 [Rx] RX: guaiFENesin [Robitussin] 100 mg PO Q6H PRN cup 02/01/21 [Rx] Oxygen Therapy Mode: Mechanical Ventilation - Discharge Summary/Plan Comment DC Time >30 min.: Yes Total # of Minutes for Discharge Time: 50 min intubation, referral, discussion with accepting MD dr. Roblero - General Info Date of Service: 02/01/21 - Review of Systems General: Reports: Weakness, Fatigue, Malaise Pulmonary: Reports: Shortness of Breath, Cough. Denies: Sputum, Hemoptysis Cardiovascular: Denies: Chest Pain, Edema Gastrointestinal: Denies: Abdominal Pain Genitourinary: Denies: Dysuria Neurological: Denies: Confusion - Patient Data Vitals - Most Recent: Last Vital Signs Temp 100.8 F H 02/01/21 13:37 Pulse 112 H 02/01/21 12:00 Resp 12 02/01/21 12:00 BP 188/82 H 02/01/21 12:00 Pulse Ox 90 L 02/01/21 13:27 Weight - Most Recent: 174 lb I&O - Last 24 hours: Intake & Output 01/31/21 02/01/21 02/01/21 22:59 06:59 14:59 Intake Total 150 400 Balance 150 400 Lab Results - Last 24 hrs: Laboratory Results - last 24 hr 01/30/21 01/31/21 01/31/21 Range/Units 06:21 06:36 15:30 WBC (5.0-10.0) 10^3/uL RBC (4.2-5.4) 10^6/uL Hgb (12.0-16.0) g/dL Hct (37.0-47.0) % MCV (80-100) fL MCH (27.0-34.0) pg MCHC (33.0-35.0) g/dL Plt Count (150-450) 10^3/uL Neut % (Auto) (42.2-75.2) % Lymph % (Auto) (20.5-50.1) % [place] % (Auto) (2-8) % Eos % (Auto) (1.0-3.0) % Baso % (Auto) (0.0-1.0) % D-Dimer, Quantitative (0-400) ng/mL ABG pH 7.46 H (7.35-7.45) ABG pCO2 38 (35-45) mmHg ABG pO2 58 L (70-100) mmHg ABG HCO3 26.7 H (22-26) mmol/L ABG O2 Saturation 91 L (95-100) % ABG Base Excess 3 ((-2)-(+3)) mmol/L Nabeel Test Positive O2 Delivery Device Hi flow nasal cannu Sodium (136-145) mmol/L Potassium (3.5-5.1) mmol/L Chloride (98-107) mmol/L Carbon Dioxide (21-32) mmol/L Anion Gap (7-13) mEq/L BUN (7-18) mg/dL Creatinine (0.55-1.02) mg/dL Est Cr Clr Drug Dosing mL/min Estimated GFR (MDRD) Glucose (70-99) mg/dL Calcium (8.5-10.1) mg/dL Total Bilirubin (0.2-1.0) mg/dL Direct Bilirubin (0.0-0.2) mg/dL Indirect Bilirubin AST (15-37) U/L ALT (14-59) U/L Alkaline Phosphatase (46-116) U/L Troponin I High Sens (<=51) pg/mL Total Protein (6.4-8.2) g/dL Albumin (3.4-5.0) g/dL Globulin Albumin/Globulin Ratio Procalcitonin 18.53 H 14.90 H ng/mL 02/01/21 02/01/21 02/01/21 Range/Units 02:54 06:15 06:15 WBC 9.6 (5.0-10.0) 10^3/uL RBC 4.03 L (4.2-5.4) 10^6/uL Hgb 12.0 (12.0-16.0) g/dL Hct 36.9 L (37.0-47.0) % MCV 91.6 (80-100) fL MCH 29.8 (27.0-34.0) pg MCHC 32.5 L (33.0-35.0) g/dL Plt Count 424 (150-450) 10^3/uL Neut % (Auto) 91.0 H (42.2-75.2) % Lymph % (Auto) 6.6 L (20.5-50.1) % [place] % (Auto) 2.3 (2-8) % Eos % (Auto) 0.0 L (1.0-3.0) % Baso % (Auto) 0.1 (0.0-1.0) % D-Dimer, Quantitative (0-400) ng/mL ABG pH 7.47 H (7.35-7.45) ABG pCO2 37 (35-45) mmHg ABG pO2 58 L (70-100) mmHg ABG HCO3 26.6 H (22-26) mmol/L ABG O2 Saturation 89 L (95-100) % ABG Base Excess 3 ((-2)-(+3)) mmol/L Nabeel Test Positive O2 Delivery Device Bipap Sodium (136-145) mmol/L Potassium (3.5-5.1) mmol/L Chloride (98-107) mmol/L Carbon Dioxide (21-32) mmol/L Anion Gap (7-13) mEq/L BUN (7-18) mg/dL Creatinine (0.55-1.02) mg/dL Est Cr Clr Drug Dosing mL/min Estimated GFR (MDRD) Glucose (70-99) mg/dL Calcium (8.5-10.1) mg/dL Total Bilirubin (0.2-1.0) mg/dL Direct Bilirubin (0.0-0.2) mg/dL Indirect Bilirubin AST (15-37) U/L ALT (14-59) U/L Alkaline Phosphatase (46-116) U/L Troponin I High Sens 11 (<=51) pg/mL Total Protein (6.4-8.2) g/dL Albumin (3.4-5.0) g/dL Globulin Albumin/Globulin Ratio Procalcitonin ng/mL 02/01/21 02/01/21 Range/Units 06:15 06:15 WBC (5.0-10.0) 10^3/uL RBC (4.2-5.4) 10^6/uL Hgb (12.0-16.0) g/dL Hct (37.0-47.0) % MCV (80-100) fL MCH (27.0-34.0) pg MCHC (33.0-35.0) g/dL Plt Count (150-450) 10^3/uL Neut % (Auto) (42.2-75.2) % Lymph % (Auto) (20.5-50.1) % [place] % (Auto) (2-8) % Eos % (Auto) (1.0-3.0) % Baso % (Auto) (0.0-1.0) % D-Dimer, Quantitative 2520 H (0-400) ng/mL ABG pH (7.35-7.45) ABG pCO2 (35-45) mmHg ABG pO2 (70-100) mmHg ABG HCO3 (22-26) mmol/L ABG O2 Saturation (95-100) % ABG Base Excess ((-2)-(+3)) mmol/L Nabeel Test O2 Delivery Device Sodium 139 (136-145) mmol/L Potassium 4.2 (3.5-5.1) mmol/L Chloride 103 (98-107) mmol/L Carbon Dioxide 27 (21-32) mmol/L Anion Gap 13.2 H (7-13) mEq/L BUN 19 H (7-18) mg/dL Creatinine 0.73 (0.55-1.02) mg/dL Est Cr Clr Drug Dosing 69.88 mL/min Estimated GFR (MDRD) > 60 Glucose 104 H (70-99) mg/dL Calcium 8.5 (8.5-10.1) mg/dL Total Bilirubin 0.5 (0.2-1.0) mg/dL Direct Bilirubin 0.2 (0.0-0.2) mg/dL Indirect Bilirubin 0.3 AST 64 H (15-37) U/L ALT 21 (14-59) U/L Alkaline Phosphatase 89 (46-116) U/L Troponin I High Sens (<=51) pg/mL Total Protein 6.7 (6.4-8.2) g/dL Albumin 2.0 L (3.4-5.0) g/dL Globulin 4.7 Albumin/Globulin Ratio 0.43 Procalcitonin ng/mL RHYS Results - Last 24 hrs: Microbiology 01/29/21 22:00 Aerobic Blood Culture - Preliminary Blood - Venous - Lab Draw NO GROWTH AFTER 2 DAYS Anaerobic Blood Culture - Preliminary NO GROWTH AFTER 2 DAYS 01/29/21 21:50 Aerobic Blood Culture - Preliminary Blood - Venous NO GROWTH AFTER 2 DAYS Anaerobic Blood Culture - Preliminary NO GROWTH AFTER 2 DAYS Med Orders - Current: Current Medications Acetaminophen (Acetaminophen 500 Mg Tab) 500 mg PO ONETIME PRN PRN Reason: Fever Last Admin: 01/30/21 11:03 Dose: 500 mg Documented by: Acetaminophen (Acetaminophen 325 Mg Tab) 650 mg PO Q6H PRN PRN Reason: Fever Last Admin: 01/31/21 22:01 Dose: 650 mg Documented by: Albuterol (Albuterol 6.7 Gm Inhaler) 0 gm INH QIDRT REPLACED BY [facility] Last Admin: 02/01/21 11:05 Dose: Not Given Documented by: Carvedilol (Carvedilol 3.125 Mg Tab) 3.125 mg PO BIDMEALS REPLACED BY [facility] Last Admin: 02/01/21 11:05 Dose: Not Given Documented by: Cholecalciferol (Cholecalciferol (Vitamin D3) 25 Mcg Tab) 25 mcg PO DAILY REPLACED BY [facility] Last Admin: 02/01/21 11:05 Dose: Not Given Documented by: Clopidogrel Bisulfate (Clopidogrel 75 Mg Tab) 75 mg PO DAILY REPLACED BY [facility] Last Admin: 02/01/21 11:05 Dose: Not Given Documented by: Dexamethasone (Dexamethasone 4 Mg/Ml Sdv) 6 mg IVPUSH DAILY REPLACED BY [facility] Last Admin: 02/01/21 11:05 Dose: Not Given Documented by: Docusate Sodium (Docusate Sodium 100 Mg Cap) 100 mg PO BID PRN PRN Reason: Constipation Ezetimibe (Ezetimibe 10 Mg Tab) 10 mg PO DAILY REPLACED BY [facility] Last Admin: 02/01/21 11:05 Dose: Not Given Documented by: Enoxaparin Sodium (Enoxaparin 80 Mg/0.8 Ml Syringe) 80 mg SUBCUT Q12HR REPLACED BY [facility] Last Admin: 02/01/21 10:39 Dose: 80 mg Documented by: Fentanyl Citrate (Fentanyl Citrate/Pf 1,500 Mcg/30 Ml [place] Vial) 0 mcg IV ASDIRECTED REPLACED BY [facility]; Protocol Last Admin: 02/01/21 12:13 Dose: 1,500 mcg Documented by: Guaifenesin (Guaifenesin 100 Mg/5 Ml Soln 5 Ml Ud Cup) 100 mg PO Q6H PRN PRN Reason: Cough Last Admin: 01/30/21 22:55 Dose: 100 mg Documented by: Remdesivir 100 mg/ Sodium (Chloride) 100 mls @ 100 mls/hr IV Q24H ADILENE Stop: 02/03/21 09:59 Last Admin: 02/01/21 10:39 Dose: 100 mls/hr Documented by: Midazolam HCl 50 mg/ Sodium (Chloride) 50 mls @ 0.5 mls/hr IV ASDIRECTED ADILENE; Protocol Last Titration: 02/01/21 12:06 Dose: 1 mg/hr, 1 mls/hr Documented by: Propofol (Diprivan 100 Ml) 100 mls @ 2.368 mls/hr IV .TITRATE ADILENE; Protocol Midazolam HCl 50 mg/ Sodium (Chloride) 50 mls @ 0.5 mls/hr IV ASDIRECTED ADILENE; Protocol Lorazepam (Lorazepam 2 Mg/Ml Sdv) 1 mg IVPUSH Q4H PRN PRN Reason: Anxiety Last Admin: 02/01/21 10:34 Dose: 1 mg Documented by: Morphine Sulfate (Morphine 2 Mg/Ml Syringe) 1 mg IVPUSH Q1H PRN PRN Reason: Pain, sob Last Admin: 02/01/21 09:05 Dose: 1 mg Documented by: Multivitamins/Minerals (Multivitamins, Therapeutic With Minerals Tab) 1 tab PO WITHBREAKFAST REPLACED BY [facility] Last Admin: 02/01/21 11:05 Dose: Not Given Documented by: Naloxone HCl (Naloxone 2 Mg/2 Ml Syringe) 0.04 mg IVPUSH Q3M PRN PRN Reason: Respiratory Depression Omeprazole (Omeprazole 20 Mg Cap.Cr) 20 mg PO ACBREAKFAST REPLACED BY [facility] Last Admin: 02/01/21 05:54 Dose: 20 mg Documented by: Ondansetron HCl (Ondansetron 4 Mg/2 Ml Sdv) 4 mg IVPUSH ONETIME PRN PRN Reason: Nausea Last Admin: 01/30/21 03:29 Dose: 4 mg Documented by: Ondansetron HCl (Ondansetron 4 Mg Tab.Dis) 4 mg PO Q6H PRN PRN Reason: nausea, able to take PO Last Admin: 01/31/21 22:02 Dose: 4 mg Documented by: Rosuvastatin Calcium (Rosuvastatin 10 Mg Tab) 10 mg PO DAILY REPLACED BY [facility] Last Admin: 02/01/21 11:05 Dose: Not Given Documented by: Sodium Chloride (Sodium Chloride 0.9% 10 Ml Syringe) 10 ml FLUSH ASDIRECTED PRN PRN Reason: Keep Vein Open Temazepam (Temazepam 15 Mg Cap) 15 mg PO BEDTIME PRN PRN Reason: Sleep Venlafaxine HCl (Venlafaxine 37.5 Mg Cap.Er) 75 mg PO DAILY REPLACED BY [facility] Last Admin: 02/01/21 11:05 Dose: Not Given Documented by: Zolpidem Tartrate (Zolpidem 5 Mg Tab) 5 mg PO BEDTIME PRN PRN Reason: Sleep Last Admin: 01/30/21 22:55 Dose: 5 mg Documented by: Discontinued Medications Acetaminophen (Acetaminophen 325 Mg Tab) 650 mg PO NOW ONE Stop: 01/29/21 23:28 Last Admin: 01/30/21 00:07 Dose: 650 mg Documented by: Acetaminophen (Acetaminophen 650 Mg Supp) 650 mg RECTAL ONETIME ONE Stop: 02/01/21 12:31 Last Admin: 02/01/21 13:37 Dose: 650 mg Documented by: Clopidogrel Bisulfate (Clopidogrel 75 Mg Tab) 75 mg PO ONETIME ONE Stop: 01/30/21 07:01 Last Admin: 01/30/21 08:14 Dose: 75 mg Documented by: Dexamethasone (Dexamethasone 4 Mg/Ml Sdv) 6 mg IVPUSH ONETIME ONE Stop: 01/29/21 22:32 Last Admin: 01/29/21 22:49 Dose: 6 mg Documented by: Dexamethasone (Dexamethasone 6 Mg Tablet) 6 mg PO DAILY@0800 REPLACED BY [facility] Last Admin: 01/31/21 09:25 Dose: 6 mg Documented by: Enoxaparin Sodium (Enoxaparin 40 Mg/0.4 Ml Syringe) 40 mg SUBCUT ONETIME ONE Stop: 01/30/21 02:25 Last Admin: 01/30/21 03:15 Dose: 40 mg Documented by: Sodium Chloride (Normal Saline) 1,000 mls @ 100 mls/hr IV .BOLUS ONE Stop: 01/30/21 08:08 Last Admin: 01/30/21 00:07 Dose: 100 mls/hr Documented by: Levofloxacin/Dextrose 500 mg/ (Premix) 100 mls @ 100 mls/hr IV ONETIME ONE Stop: 01/29/21 23:24 Last Admin: 01/29/21 22:53 Dose: 100 mls/hr Documented by: Remdesivir 200 mg/ Sodium (Chloride) 250 mls @ 250 mls/hr IV ONETIME ONE Stop: 01/30/21 03:24 Last Admin: 01/30/21 03:14 Dose: 250 mls/hr Documented by: Remdesivir 200 mg/ Sodium (Chloride) 250 mls @ 250 mls/hr IV DAILY ADILENE Stop: 02/03/21 09:59 Iopamidol (Iopamidol 755 Mg/Ml 100 Ml Bottle) 100 ml IVPUSH ONETIME ONE Stop: 01/30/21 16:17 Last Admin: 01/30/21 16:21 Dose: 66 ml Documented by: Morphine Sulfate (Morphine 2 Mg/Ml Syringe) 1 mg IVPUSH ONETIME ONE Stop: 02/01/21 03:46 Last Admin: 02/01/21 04:01 Dose: 1 mg Documented by: Omeprazole (Omeprazole 20 Mg Cap.Cr) 20 mg PO ONETIME ONE Stop: 01/30/21 07:01 Last Admin: 01/30/21 06:26 Dose: 20 mg Documented by: Promethazine HCl/Codeine (Codeine/Promethazine 10-6.25 Mg/5 Ml Syrup 5 Ml Ud Cup) 10 ml PO ONETIME ONE Stop: 01/30/21 11:07 Last Admin: 01/30/21 11:14 Dose: 10 ml Documented by: Venlafaxine HCl (Venlafaxine 37.5 Mg Cap.Er) 75 mg PO WITHBREAKFAST ONE Stop: 01/30/21 07:01 Last Admin: 01/30/21 08:14 Dose: 75 mg Documented by: - Exam Quality Assessment: Reports: Supplemental Oxygen (bipap then Intubated/vented) General: Reports: Alert, Oriented Neck: Reports: Supple Lungs: Reports: Rhonchi Cardiovascular: Reports: Regular Rate, Regular Rhythm GI/Abdominal Exam: Normal Bowel Sounds, Soft, Non-Tender Extremities: No Pedal Edema
[2021-02-01] MEDS ORDERED: Ketamine 500 MG in Sodium Chloride 0.9% 500 ML IV SCH (16:15)
[2021-02-01 16:16] VITALS: PULSE 110
[2021-02-01 16:50] VITALS: BP 110/60
[2021-02-01] MEDS ORDERED: fentaNYL 100 MCG/2 ML SDV ONE (17:04)
[2021-02-01] MEDS ORDERED: fentaNYL 100 MCG/2 ML SDV IVPUSH ONE (17:15)
== END 2021-02-01 17:08 | DRG 208 ==
LOC: DL.ED 20:57 → DL.MS 01-30 13:50
PROVIDERS: ADMIT Internal Medicine; ATTEND Internal Medicine
PROC: XW033E5 Introduction of Remdesivir Anti-infective into Peripheral Vein, Percutaneous Approach, New Technology Group 5 (ICD-10-PCS; 2021-01-30)
PROC: 3E0333Z Introduction of Anti-inflammatory into Peripheral Vein, Percutaneous Approach (ICD-10-PCS; 2021-01-30)
PROC: 0BH17EZ Insertion of Endotracheal Airway into Trachea, Via Natural or Artificial Opening (ICD-10-PCS; 2021-01-30)
PROC: 3E0DX3Z Introduction of Anti-inflammatory into Mouth and Pharynx, External Approach (ICD-10-PCS; 2021-01-31)
PROC: 5A1935Z Respiratory Ventilation, Less than 24 Consecutive Hours (ICD-10-PCS; principal; 2021-02-01)
PROC: 5A09357 Assistance with Respiratory Ventilation, Less than 24 Consecutive Hours, Continuous Positive Airway Pressure (ICD-10-PCS; 2021-02-01)
DX: U07.1 COVID-19 (principal); J12.82 Pneumonia due to coronavirus disease 2019; J15.9 Unspecified bacterial pneumonia; J96.01 Acute respiratory failure with hypoxia; A08.39 Other viral enteritis; Z66 Do not resuscitate; F32.A Depression, unspecified; I25.10 Atherosclerotic heart disease of native coronary artery without angina pectoris; H54.7 Unspecified visual loss; E78.00 Pure hypercholesterolemia, unspecified; K21.9 Gastro-esophageal reflux disease without esophagitis; K59.09 Other constipation; M54.2 Cervicalgia; M54.9 Dorsalgia, unspecified; G89.29 Other chronic pain; M19.90 Unspecified osteoarthritis, unspecified site; Z90.49 Acquired absence of other specified parts of digestive tract; Z79.82 Long term (current) use of aspirin; Z79.899 Other long term (current) drug therapy; I25.2 Old myocardial infarction; Z95.5 Presence of coronary angioplasty implant and graft; Z28.82 Immunization not carried out because of caregiver refusal
CPT/HCPCS: 0240U; 36415; 36600; 51702; 71045; 71250; 71260; 80048; 80053; 80076; 81003; 82248; 82803; 83605; 83735; 83880; 84145; 84484; 85025; 85379; 85610; 86140; 87040; 93005; 93970; 94002; 96365; 96372; 96375; 99221; 99239; 99285-25; 99291; A9270-GY; J1100; J1650; J1956; J2060; J2250; J2270; J2405; J3010; J7030; J7040; J7050; J8540; Q9967